=== PATIENT | female | born 1950 | race Caucasian/White ===

== ENCOUNTER 2022-07-14 09:01 | Outpatient (CLI) | payer MEDICARE, OTHER, SELFPAY ==
--- NOTE | ~2022-07-14 | MMUS_ITS ---
EXAMINATION: US breast biopsy LT w image, MM post biopsy invasive LT DATE: 07/14/2022 10:53 (accession [id number]), 07/14/2022 10:55 (accession [id number]) INDICATION: Indeterminate left breast mass Ultrasound-guided core biopsy is requested to evaluate for malignancy. TECHNIQUE AND FINDINGS: The risks and potential benefits of the procedure were discussed with the patient including bleeding, infection, and nondiagnostic specimen. A time out was performed. The skin of the left breast was pre pared and draped in usual sterile fashion. 1% lidocaine was used for superficial anesthesia. 1% lidoc quita with epinephrine was used for deep anesthesia. A vacuum-assisted biopsy gun needle was advanced through to the outer edge of the region of interest from an inferior approach utilizing sonographic guidance. A total of five tissue core samples were ob tained through the lesion. A tissue marker clip was then placed at the biopsy site. Hemostasis was ac hieved. A sterile bandage was applied. The patient tolerated procedure well and there was no evidence of immediate complication. The patient was given verbal instructions to return to the Emergency Department in the event of severe breast pa in or rapid breast enlargement. A two view left breast mammogram was obtained to document tissue daisy er clip placement. IMPRESSION: 1. Successful ultrasound-guided vacuum-assisted biopsy of left breast mass with tissue marker placeme nt. Reviewed, dictated and finalized at location A. IMPRESSION: 1. Successful ultrasound-guided vacuum-assisted biopsy of left breast mass with tissue marker placement.
== END 2022-07-14 09:02 | disposition home or self-care (01) ==
PROVIDERS: PCP Family Medicine; Visit Provider Surgery
DX: C50.912 Malignant neoplasm of unspecified site of left female breast (principal)
CPT/HCPCS: 19083; 88305; 88342; 88360; A4648

== ENCOUNTER 2022-08-11 09:27 | Outpatient (CLI) | payer MEDICARE, OTHER, SELFPAY ==
--- NOTE | 2022-08-11 09:30 | ECG_ITS ---
Measurements Intervals [place] Rate: 66 P: 35 IN: 171 QRS: 24 QRSD: 90 T: 50 QT: 378 QTc: 397 Interpretive Statements SINUS RHYTHM BASELINE ARTIFACT- I, II, III, AVR, AVL, AVF, V4-V6 NORMAL ECG NO PREVIOUS ECG AVAILABLE FOR COMPARISON Electronically Signed On 08-11-2022 10:12:49 CDT by Darrick Nicole D.O.
[2022-08-11 10:20] LABS: Anion Gap 5 mmol/L (8-16); Blood Urea Nitrogen 13 mg/dL (7-17); Calcium 9.6 mg/dL (8.4-10.2); Carbon Dioxide 26 mmol/L (22-30); Chloride 100 mmol/L (98-107); Estimated Glomerular Filt Rate > 60; Glucose 106 mg/dL (65-110); Potassium 4.7 mmol/L (3.4-5.0); Sodium 131 mmol/L (137-145)
== END 2022-08-11 09:28 | disposition home or self-care (01) ==
PROVIDERS: Anesthesiology; PCP Family Medicine; Visit Provider Surgery
DX: Z01.818 Encounter for other preprocedural examination (principal); I10 Essential (primary) hypertension
CPT/HCPCS: 36415; 80048; 93005

== ENCOUNTER 2022-08-13 00:04 | Day surgery (SDC) | payer MEDICARE, OTHER, SELFPAY ==
--- NOTE | 2022-08-07 14:47 | PC.NURSE ---
Addendum entered by Nalini Moses RN 08/07/22 14:51: HIBICLEPERI SHOWER MORNING OF SURGERY Original Note: Report to the Outpatient Waiting Room, entrance under the green pavilion located off [address], at time __0630 on date __08/13/22 . OR Time: ___1000 . NEEDLE LOC AT 0730 Time changes happen often and if your time is changed the preop area will call you the afternoon before. - You and your visitor will be asked to self-screen and do not enter if you have any COVID symptoms. - Only one visitor and NO children visitors are allowed at this time. - The patient visitor is requested to leave or wait in car when not with patient due to restrictions. - A mask is required within the hospital. Patients may have clear liquids (water, carbonated beverages, clear teas, apple juice) until 3 hours prior to surgery with a maximum of 20 ounces. - No food from midnight until time of surgery - Infants may have breast milk until 4 hours before surgery, infant formula 6 hours prior to surgery. - Children will be allowed to drink immediately following surgery. If applicable, please bring a bottle or sippy cup to assist with drinking. Juice, water, soda, and popsicles are readily available. For infants on formula, please bring formula the day of surgery. Pacifiers are allowed. Take the following medications with a SIP of water the morning of surgery: _LEVOTHYROXINE,TIMOLOL EYE DROP,BUSPIRONE IF NEEDED Medications to discontinue per physician ____ALL VITAMINS AND SUPPLEMENTS 3 DAYS PRE OP Date to take last dose____08/09/22 Please no make-up, nail maltese, hairspray, perfume, deodorant, or body powder the day of surgery. No jewelry (including any body piercings) or valuables the day of surgery, leave them at home. Please take a shower or bath the night before, or the morning of, surgery with an antibacterial soap. Wear comfortable, loose fitting clothing. Children are encouraged to wear pajamas. - Jewelry must be removed prior to entering the operating room. Rings and piercings that are not removed may be cut off. - The hospital will not accept responsibility for valuables. - Please leave all valuables, including medications, at home the day of surgery. If you are going home after surgery, a licensed jitney driver must drive you home. - NO public transportation without another adult. - We recommend that an adult stay with you for 24 hours following discharge. - We also recommend that you do not drive, make important decision, drink alcoholic beverages, or take any drugs that were not prescribed by your health care provider for at least 24 hours after your discharge time. For Pediatric surgeries, we recommend two adults accompany the child home (only one inside the building at this time). Follow any additional instructions given to you from your surgeon. If you or anyone in your household have experienced Covid symptoms in the past week, please notify your surgeon or the nurse liaison at the phone number below for possible testing. Telephone instructions given to __PATIENT and asked if any additional questions and then verbalized understanding. Patient advised to call surgeon office or pre surgery nurse liaison [phone] if any additional questions.
[2022-08-07 14:52] VITALS: BMI 27.8
--- NOTE | 2022-08-12 15:30 | WPDANESEPPF ---
Anes - Initial Pre Proc Eval Procedure: Operation Date: 08/13/22 10:00 Proposed Procedures p Left Breast Lumpectomy, Left Axillary [place] Node Biopsy - Sammy Snyder MD s Left Breast Ultrasound and /or Mammogram Guided Needle Localization - Sammy Snyder MD Date/Time: 08/12/22 15:30 Surgeon: Sammy Snyder MD Pre Op Diagnosis: Left Breast Ca Patient Data Age: 72 Gender: F Height: 1.69 m Weight: 79.4 kg Allergies Allergy/AdvReac Type Severity Reaction Status Date / Time Sulfa (Sulfonamide Allergy Severe as a child Verified 08/13/22 08:21 Antibiotics) Home Medications Medication Instructions Recorded Confirmed Type cranberry extract 425 mg capsule 425 mg PO DAILY 06/06/21 08/13/22 History latanoprost 0.005 % eye drops 1 drp EACH EYE DAILY 06/06/21 08/13/22 History olmesartan 20 mg tablet (Benicar) 20 mg PO DAILY 06/06/21 08/13/22 History timolol 0.25 % eye drops 1 drp EACH EYE Q12H 06/06/21 08/13/22 History buspirone 10 mg tablet 5 mg PO BID PRN anxiety #30 tabs 02/26/22 08/13/22 Rx spironolactone 50 mg tablet See Rx Instructions .Route 03/20/22 08/13/22 Rx .COMPLEX #90 tabs clobetasol 0.05 % scalp solution 1 applic topical DAILY 04/09/22 08/13/22 History pravastatin 10 mg tablet See Rx Instructions .Route 06/16/22 08/13/22 Rx .COMPLEX #90 tabs levothyroxine 50 mcg tablet 50 mcg PO DAILY #90 tabs 06/18/22 08/13/22 Rx omeprazole 40 mg capsule,delayed See Rx Instructions .Route 07/10/22 08/13/22 Rx release .COMPLEX #90 caps aspirin 325 mg tablet 325 mg PO DAILY 07/16/22 08/13/22 History Patient hx anesthesia problems: none Family hx anesthesia problems: none Results Review: All pre-operative results and documents have been reviewed as part of the pre-operative evaluation. 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 Scoliosis Surgical History Surgical History Cholecystectomy planned Deficient knowledge of hysterectomy History of eye surgery Status post removal of thyroid nodule Tonsillectomy planned Family History Family History Father Diabetes mellitus Cerebrovascular accident Mother Lung cancer Esophageal cancer Social History Social History Smoking status: Never smoker Second hand tobacco smoke exposure: No Alcohol intake: current Drinks per week: 2 Substance use: never Substance use type: does not use Living arrangements: with family Gender identity (if verbalized by the patient): Female Spiritual care concerns: No Agree to blood products: Yes Anes - Eval Final PreProcedure Day of Procedure 08/12/22 15:30 Patient weight: overweight Heart: regular rate and rhythm Lungs: clear to auscultation and normal air movement Airway: Mallampati scale class II Neurological: alert and oriented Last oral intake: >/= 8 hours ASA classification: III Emergent: no Anesthetic plan: proceed Anesthesia type and monitoring: general LMA Results Review: All pre-operative results and documents have been reviewed as part of the pre-operative evaluation. Informed Consent: The patient's anesthetic plan and its attendant risks and benefits were discussed with the patient/family/POA. Questions were solicited and answers provided to the satisfaction of the patient/family/POA.
[2022-08-13] VITALS (9 sets, daily range): BP systolic 142–168; BP diastolic 66–82; PULSE 60–84; RESP 12–18; TEMP 36.3–37; O2SAT 100
--- NOTE | ~2022-08-13 | NM_ITS ---
NM sentinel node inject only DATE: 08/13/2022 10:35 INDICATION: Left breast cancer; preoperative radiopharmaceutical periareolar injection for detection of axillary sentinel node, sentinel node dissection TECHNIQUE: The purpose of the procedure, technique and potential locations were discussed with the neil nelson. The patient verbalized understanding and gave consent. Timeout procedure confirmed proper patient, procedure and side. Four equally divided doses totaling cumulative 1.031 mCi 99m technetium Lymphoseek were injected subd ermally at 12:00, 3:00, 6:00 and 9:00 periareolar locations. The patient tolerated the procedure well, without complaint or complication. IMPRESSION: Preoperative 99m technetium Lymphoseek periareolar subdermal injections for sentinel nod e detection and surgical dissection Reviewed, dictated and finalized at Location A. Reviewed, dictated and finalized at location A. IMPRESSION: Preoperative 99m technetium Lymphoseek periareolar subdermal injec tions for sentinel node detection and surgical dissection
--- NOTE | ~2022-08-13 | MM_ITS ---
MM surgical specimen LT DATE: 08/13/2022 11:31 INDICATION: Specimen marker excision verification TECHNIQUE: Single noncompression digital mammographic exposure of surgical soft tissue specimen COMPARISON: None FINDINGS: The radiopaque heart shape biopsy marker and wire are present within the surgical soft tiss ue specimen. IMPRESSION: Successful surgical excision of radiopaque biopsy marker Reviewed, dictated and finalized at Location A. Reviewed, dictated and finalized at location A.
--- NOTE | ~2022-08-13 | MM_ITS ---
MM needle loc LT DATE: 08/13/2022 08:36 INDICATION: Breast cancer. Preoperative mammographically guided wire localization of biopsy marker. TECHNIQUE: The purpose of the procedure, technique and potential competitions were discussed with the patient. The patient verbalized understanding and gave consent. Timeout procedure confirmed proper patient, procedure and sidedness. The left breast was placed in compression with biopsy grid apparatus. The skin was prepared with ster ile solution. 1% lidocaine local anesthetic was administered to the skin and underlying subcutaneous tissues. A 5 cm [place] Mammalok needle was introduced into the lateral aspect of the left breast at the area of the biopsy marker. Craniocaudal exposures confirmed appropriate direction of the needle. Mediolateral exposure confirmed proper depth of the needle. The wire was engaged to the needle and th e needle withdrawn. Final ML and CC views reveal the wire in excellent position surrounding the upper outer quadrant left breast biopsy marker. The patient was very cooperative and tolerated the procedure well, without complaint or apparent comp lication. IMPRESSION: Successful preoperative mammographically guided wire localization of upper outer quadrant left breast biopsy marker Reviewed, dictated and finalized at Location A. Reviewed, dictated and finalized at location A. IMPRESSION: Successful preoperative mammographically guided wire localization o f upper outer quadrant left breast biopsy marker
[2022-08-13] MEDS: ACETAMINOPHEN 500 MG TABLET 1000 MG PO (07:29)
[2022-08-13] MEDS: KETOROLAC 15 MG/ML VIAL (*BKC) IV PUSH (07:30)
[2022-08-13] MEDS: LACTATED RINGERS 1,000 ML 30 ML IV CONT ×2 (07:31→12:10)
[2022-08-13 08:16] LABS: Sodium 135 mmol/L (137-145)
--- NOTE | 2022-08-13 08:27 | SUR.PREOP ---
0655: PT TO MAMM VIA W/C ACCOMP BY DOCUMENTING RN FOR NEEDLE LOCALIZATION WITH SNMI TF.
--- NOTE | 2022-08-13 09:43 | WPDHPUPDATE1 ---
History and Physical Update Update Date/Time: 08/13/22 09:43 History and Physical has been reviewed, including an updated exam of the patient. There are NO changes in the patient's condition. Risks, benefits, and alternatives have been discussed and questions answered. Patient agrees to proceed with procedure.
[2022-08-13] MEDS: ceFAZolin 2 GM/D5W 50 ML 2 GM/50 ML BAG IVPB (09:51)
--- NOTE | 2022-08-13 11:00 | SUR.OPER ---
Left Axillary [place] Lymph Node #1 sent with ODALIS Castro to Pathology. Received by Annia in Path at 1101.
--- NOTE | 2022-08-13 11:45 | SUR.OPER ---
Left Breast Lumpectomy received in [facility] by Ghislaine @ 1124. Margins are good. Dr. Snyder informed. Re-excisions sent with ODALIS Chase to Path. Received by Annia at 1145.
[2022-08-13] MEDS: ISOSULFAN BLUE 1% INJ 5 ML VIAL SUB-Q (11:54)
[2022-08-13] MEDS: BUPIVACAINE/EPINEPHRINE 0.25% 50 ML VIAL INFILTRATE (11:55)
--- NOTE | 2022-08-13 12:29 | W.PM.PROC2 ---
Procedure Note - Detailed Date of Procedure 08/13/22 Pre-op Diagnosis Left Breast Ca Post-op Diagnosis Same Procedure Performed Wire localization, left breast lumpectomy, left axillary sentinel lymph node biopsy Surgeon Sammy Snyder MD Isolation Washer Lynn Cheek [facility] Anesthesia General and Local (0.25% Marcaine with epinephrine) Indications Patient was noted on breast imaging to have a 1.3 cm spiculated abnormality in the upper-outer quadrant of the left breast. She underwent ultrasound-guided core biopsy of the lesion. This was found to be invasive ductal carcinoma with some lobular features. She is taken to surgery now for wire localization, left breast lumpectomy as well as left axillary sentinel lymph node biopsy. Findings Despite searching diligently in the left axilla, only 1 left axillary sentinel lymph node could be found. This node had high isotope uptake and also stained with Isosulfan Blue dye. Specimen mammogram did show the lesion to be present in the specimen. Description of Procedure The patient had gone to x-ray for wire localization as well as injection of radioisotope under the left nipple. She then returned to outpatient surgery. She was seen preoperatively and the x-rays examined. She was then taken to the operating room and induced into general anesthesia. The left breast and left axilla were prepped and draped. The left arm was prepped such that it was mobile and prepped into the field. We began by injecting Isosulfan Blue dye under the left nipple. Gentle breast massage was carried out. I then used the Navigator and identified an area in the left axilla that had very high isotope emission. I marked this area. I then clarissa a hairline incision in the axilla. Local anesthesia was infiltrated in the area of the anticipated incision. I then made the incision and dissected through the subcutaneous. Upon encountering the axillary fat, I again used the Navigator and found the direction of the isotope emitting node. Additional dissection was carried out and a blue-stained node was easily found. There were several lymphatics heading to the lymph node. I carefully dissected around the node. The lymphatics were clipped. The node had very high isotope emission. I dissected the lymph node out completely and sent this as sentinel lymph node 1. I then placed the Navigator back in the axilla. We checked for a considerable length of time to find any other areas of high isotope emission. We did some additional dissection under the pectoralis major muscle. Also some additional dissection was done back towards the chest wall. No dye stained or isotope emitting nodes were found. I palpated the axilla and could not find any palpably suspicious nodes. After continuing this process I was eventually convinced there was no additional sentinel nodes of value. We then inspected and achieved good hemostasis. The axilla was closed in layers with interrupted 3-0 Monocryl suture. The skin was closed with interrupted subcuticular 3-0 Monocryl suture. I then placed a laparotomy sponge and a blue towel over the axillary incision. We turned our attention to the left breast. The localizing wire had been carefully protected throughout the procedure. Looking at the mammographies, I marked on the left breast the area where the incision would be made. Local anesthetic was infiltrated in this area. Incision was made and deepened through the superficial breast tissue. I then dissected over to the wire and pulled it through the skin and then out the wound. It now was almost directly over the lesion. We dissected a bit deeper in the breast and then proceeded with the lumpectomy. I grasped the breast tissue at this position with the wire and dissected widely around the area of the anticipated lesion and deeper into the breast such that the hook of the wire would definitely be excised with the lumpectomy specimen. This was able to be accomplished with
[2022-08-13] MEDS: ONDANSETRON INJ 4 MG/2 ML VIAL IV PUSH (12:51)
[2022-08-13] MEDS: oxyCODONE HCL (*CRX) 5 MG TAB IR PO (13:14)
== END 2022-08-13 14:07 | disposition home or self-care (01) ==
PROVIDERS: Anesthesiology; PCP Family Medicine; Visit Provider Surgery
PROC: (CPT 19301; principal; 2022-08-13 10:00)
PROC: (CPT 19301; 2022-08-13 10:00)
DX: C50.412 Malignant neoplasm of upper-outer quadrant of left female breast (principal); J44.9 Chronic obstructive pulmonary disease, unspecified; I10 Essential (primary) hypertension; E03.9 Hypothyroidism, unspecified; K21.9 Gastro-esophageal reflux disease without esophagitis; H40.9 Unspecified glaucoma; F41.9 Anxiety disorder, unspecified; Z87.81 Personal history of (healed) traumatic fracture
CPT/HCPCS: 19301; 38525; 19281; 36415; 38792; 76098; 84295; 88307; A9270; A9520; C1713; C1769; J0690; J1100; J1885; J2405; J2704; J3010; J7030; J7120

== ENCOUNTER 2023-01-05 10:54 | Outpatient (CLI) | payer MEDICARE, OTHER, SELFPAY ==
[2023-01-05 11:11] LABS: Basophils Percent Auto 0.6 % (0.2-1.2); Eosinophils Absolute Auto 0.1 K/mm3 (0-0.3); Eosinophils Percent Auto 2.5 % (0-4.4); Hematocrit 34.4 % (37.0-47.0); Hemoglobin 11.5 g/dL (12.0-15.0); Immature Granulocyte Absolute 0.03 K/mm3 (0.00-0.031); Immature Granulocyte Percent A 0.6 % (0-0.5); Lymphocytes Absolute Auto 1.06 K/mm3 (0.9-3.2); Lymphocytes Percent Auto 21.7 % (18.3-44.2); Mean Corpuscular HGB Conc 33.4 g/dl (32-36); Mean Corpuscular Hemoglobin 31.3 pg (26-34); Mean Corpuscular Volume 93.7 fl (80-100); Mean Platelet Volume 9.1 fl (7.4-10.4); Monocytes Absolute Auto 0.6 K/mm3 (0.1-0.6); Monocytes Percent Auto 12.1 % (2.6-8.5); Neutrophils Absolute Auto 3.1 K/mm3 (1.3-6.7); Neutrophils Percent Auto 62.5 % (45.5-73.1); Platelet Count Result 263 k/mm3 (150-375); Red Blood Count 3.67 M/mm3 (4.2-5.4); Red Cell Distribution Width 11.9 % (11.5-14.5); White Blood Count 4.9 K/mm3 (4.5-10.0)
[2023-01-05 11:32] LABS: Alanine Aminotransferase 27 U/L (6-35); Albumin Level 4.5 g/dL (3.5-5.1); Alkaline Phosphatase 84 U/L (38-126); Anion Gap 5 mmol/L (8-16); Aspartate Amino Transferase 36 U/L (14-36); Bilirubin,Total 0.4 mg/dL (0.2-1.3); Blood Urea Nitrogen 18 mg/dL (7-17); Calcium 9.6 mg/dL (8.4-10.2); Carbon Dioxide 29 mmol/L (22-30); Chloride 97 mmol/L (98-107); Estimated Glomerular Filt Rate > 60; Glucose 98 mg/dL (65-110); Potassium 4.8 mmol/L (3.4-5.0); Sodium 131 mmol/L (137-145)
== END 2023-01-05 10:55 | disposition home or self-care (01) ==
LOC: ANHLAB 10:55
PROVIDERS: PCP Family Medicine; Visit Provider Internal Medicine Hematology & Oncology
DX: C50.412 Malignant neoplasm of upper-outer quadrant of left female breast (principal); Z17.0 Estrogen receptor positive status [ER+]
CPT/HCPCS: 36415; 80053; 85025

== ENCOUNTER 2023-04-14 10:30 | Outpatient (RCR) | payer MEDICARE, OTHER, SELFPAY ==
--- NOTE | 2023-04-07 16:34 | OPREHPOC ---
Outpatient Therapy Plan of Care This is a Multidisciplinary Plan of Care that may contain components documented by all disciplines (PT, OT, and ST.) PT Problem 1 PT Problem #1 Knowledge Deficit PT Goal 1 Goal Pt will demo independence in HEP Target Visit 8 PT Problem 2 PT Problem #2 Pain PT Goal 1 Goal Pt will report highest pain level at 3/10 or less Target Visit 8 PT Goal 2 Goal Pt will report resolution of pain Target Visit 16 PT Problem 3 PT Problem #3 Impaired Range of Motion PT Goal 1 Goal Pt will demo ROM equal to unaffected wrist Target Visit 16 PT Problem 4 PT Problem #4 Impaired Strength PT Goal 1 Goal Pt will demo level vial inside grinder strength within 5 lbs of unaffected UE Target Visit 16
--- NOTE | 2023-04-07 16:38 | PTOPEVAL1 ---
Assessment and note entered by Joellen Wheatley, PT Evaluation Information Assessment Status Evaluation Diagnosis left wrist pain Onset 3 months Subjective Information [place] a [place] driving [place] especially in the last couple of years. Recent radiation therapy for breast. Hsa been wearing splint at night mostly Reported Pain Level Pain Score 0: Self Report Assessment PT Clinical Summary Pt reports pain in left wrist approx last 3 months without injury. Has history of repetitive use injury and fractures so has not been using her wrist much and bracing it secondary to possibility of this. Reports show no fractures and pt only wearing her splint at night now. She demo's decreased ROM of the left wrist as compared to right as well as both decreased compared to normative data. Pt will benefit from physical therapy to address deficits, and improve pain to return to pain-free PLOF. Plan of Care Interventions Electrical Stimulation,Hot Pack/Cold Pack,Manual Therapy,Neuro Re-education,Paraffin Bath,Patient/ Caregiver Educati,Therapeutic Activities, Therapeutic Exercise,Ultrasound Other Interventions Taping PT Services Indicated Yes Treatment Frequency and 2x weekly x 8 weeks Duration These treatments will address the objective and functional deficits as defined above. The patient will be advanced safely and appropriately in order for the patient to progress towards his/her prior level of function. Additional exercises will be introduced and as well as a comprehensive home exercise program upon discharge, if needed, ?to ensure carryover of functional gains achieved in the clinic. This treatment plan has been reviewed and agreement upon by the patient.
--- NOTE | 2023-04-17 10:27 | PTOPDC ---
Assessment and note entered by Joellen Wheatley, PT Assessment Status Discharge - Pt Not Present Diagnosis left wrist pain Onset 3 months Subjective Information [place] a lot driving [place] country especially in the last couple of years. Recent radiation therapy for breast. Hsa been wearing splint at night mostly Assessment PT Clinical Summary During therapy sessions, impairent appeared more intricate than at first evaluation. Pt thus referred to Certified Hand Therapist for best possible care of issue. Thus discharged from PT POC.
== END 2023-04-17 10:48 | disposition home or self-care (01) ==
LOC: ANHHIPT 10:30
PROVIDERS: PCP Family Medicine; Visit Provider Family Medicine
DX: M25.532 Pain in left wrist (principal)
CPT/HCPCS: 97014; 97110; 97140; 97162; G0283

== ENCOUNTER 2023-05-28 09:45 | Outpatient (RCR) | payer MEDICARE, OTHER, SELFPAY ==
--- NOTE | 2023-04-17 14:12 | OTOPEVAL1 ---
Assessment and note entered by CHARITY Odonnell/Michelle, CHT Evaluation Information Assessment Status Evaluation Diagnosis Pain in left wrist Onset ~3 months ago Subjective Information Patient reports onset of pain about 3 months ago. Stating no injury, just onset of wrist pain. She wore an immobilizer x2 months but was advised to stop wearing it so her wrist didn't keep getting weaker. No pain at rest. Pain increases to 5/10 with hooking bra, pinching and pulling up pants, toweling off after her shower, and washing her hair. She states that for over a month she has tried to adjust how she has been holding her phone and tablet to rest the wrist, but reports no changes in her pain. Tylenol helps temporarily, but she doesn't like to take this twice a day. She has a tens unit she uses on the area also. Assessment OT Clinical Summary Patient referred to outpatient hand therapy with left wrist pain with no underlying cause. She has tried immobilizing and she is using a tens unit at home. She continues to have this pain with particular ADL tasks and then the pain subsides with rest. Skilled OT indicated for use of modalities, therapeutic exercise, manual therapy, and HEP instruction to facilitate optimal functional use of the left hand/wrist. Plan of Care Interventions Therapeutic Exercise,Manual Therapy,Therapeutic Activities,Hot Pack/Cold Pack,Paraffin OT Services Indicated Yes Treatment Frequency and 1x/week for 3 weeks Duration These treatments will address the objective and functional deficits as defined above. The patient will be advanced safely and appropriately in order for the patient to progress towards his/her prior level of function. Additional exercises will be introduced and as well as a comprehensive home exercise program upon discharge, if needed, ?to ensure carryover of functional gains achieved in the clinic. This treatment plan has been reviewed and agreement upon by the patient.
--- NOTE | 2023-04-17 14:12 | OPREHPOC ---
Outpatient Therapy Plan of Care This is a Multidisciplinary Plan of Care that may contain components documented by all disciplines (PT, OT, and ST.) OT Problem 1 OT Problem #1 Knowledge Deficit OT Goal 1 Goal 1. Patient to be independent with instructed materials. Target Visit 3 OT Problem 2 OT Problem #2 Pain OT Goal 1 Goal 1. Patient to report reduced pain to 3/10 or less with hooking bra, drying off after her shower, and washing her hair. OT Problem 3 OT Problem #3 Impaired Strength OT Goal 1 Goal 1. Increase left white shoe ragger strength to 45 lbs. 2. Increase palmar pinch strength to 4 lbs. Target Visit 3
--- NOTE | 2023-04-23 15:03 | PCOTNOTE ---
Patient did not show up for scheduled appointment this date. Called patient and left voicemail regarding next appt time.
--- NOTE | 2023-04-30 10:49 | BUOTOPEVAL ---
Assessment and note entered by CHARITY Odonnell/Michelle, CHT Evaluation Information Assessment Status Progress Diagnosis Pain in left wrist Onset ~3 months ago Subjective Information Patient has participated in 2 outpatient hand therapy sessions focused on treating left wrist pain. We began treating De Quervain's tenosynovitis. She has been wearing a thumb spica brace (her previous wrist brace did not immobilize the thumb). She has been completing gentle wrist stretches and using heat/ice. She reports she has no pain at rest. And has been having less pain with hand use now that she is wearing the proper brace. She reports feeling good progress so far. Reported Pain Level Pain Score 0: Self Report Additional Pain Score Comments No pain at rest. Slight increase in pain with passive stretching to the 1st dorsal compartment. Functionally she continues to have pain when trying to open jars and pinch and pull up clothes. No longer having 8/10 pain upon waking up in the morning. Assessment OT Clinical Summary Patient referred to outpatient hand therapy with left wrist pain with no underlying cause. Therapy has deduced that tendonitis vs OA is the root cause of her pain. We have gone back to immobilization, except we have immobilized the thumb and not just the wrist and we are now making good progress with reduced pain. She is currently independent with immobilization, passive stretches, and modalities for pain and inflammation. Plan to have her complete this home program independently x3 and have her return for progression of her HEP. Continued skilled OT indicated for use of modalities, therapeutic exercise, manual therapy, and HEP instruction to facilitate optimal functional use of the left hand /wrist. Plan of Care Interventions Therapeutic Exercise,Manual Therapy,Therapeutic Activities,Hot Pack/Cold Pack,Paraffin OT Services Indicated Yes Treatment Frequency and 0-1x/week for 3 weeks Duration These treatments will address the objective and functional deficits as defined above. The patient will be advanced safely and appropriately in order for the patient to progress towards his/her prior level of function. Additional exercises will be introduced and as well as a comprehensive home exercise program upon discharge, if needed, ?to ensure carryover of functional gains achieved in the clinic. This treatment plan has been reviewed and agreement upon by the patient.
--- NOTE | 2023-04-30 10:50 | OPREHPOC ---
Outpatient Therapy Plan of Care This is a Multidisciplinary Plan of Care that may contain components documented by all disciplines (PT, OT, and ST.) OT Problem 1 OT Problem #1 Knowledge Deficit OT Goal 1 Goal 1. Patient to be independent with instructed materials. ---OT POC UPDATE 04/29/23--- 1. Met, continue as HEP is progressed Target Visit 3 OT Problem 2 OT Problem #2 Pain OT Goal 1 Goal 1. Patient to report reduced pain to 3/10 or less with hooking bra, drying off after her shower, and washing her hair. ---OT POC UPDATE 04/29/23--- 1. Patient is progressing and doing well with reduced pain during ADLs, continue to monitor and address pain each session. OT Problem 3 OT Problem #3 Impaired Strength OT Goal 1 Goal 1. Increase left pulper tender strength to 45 lbs. 2. Increase palmar pinch strength to 4 lbs. ---OT POC UPDATE 04/29/23--- Strength has not been addressed yet as our main focus has been pain reduction. Will be addressing pain at our next session in 3 weeks. Target Visit 3
--- NOTE | 2023-05-28 10:09 | OTOPDC ---
Assessment and note entered by CHARITY Odonnell/Michelle, CHT Evaluation Information Assessment Status Discharge Diagnosis Pain in left wrist Subjective Information Patient has participated in 4 outpatient hand therapy sessions focused on treating left wrist pain. We began treating De Quervain's tenosynovitis. She had been wearing a thumb spica brace for about 2 weeks, but stopped due to feeling like it was no longer helping. She has been completing gentle wrist stretches and using heat/ice. She continues to report no pain at rest. Worst pain is when she wakes up in the morning, rating this at 6/10. She states as she gets moving the pain eases up. She states she would like to wrap up her care here and get a referral to an orthopedic MD. Reported Pain Level Pain Score 0: Self Report Additional Pain Score Comments No pain at rest. 6/10 upon waking up in the morning. Assessment OT Clinical Summary Patient referred to outpatient hand therapy with left wrist pain with no underlying cause. Therapy has deduced that tendonitis vs OA is the root cause of her pain, however she continues to have negative Arianna's and CMC grind test. She has pain with odd movements and points to the 1st dorsal compartment/1st CMC area as the site of her pain. She presents today stating that her progress has plateaued with therapy and she is interested in following up with Dr. Andersen for further treatment. Discharging the patient today with goals not met. Plan of Care OT Services Indicated No
== END 2023-05-29 11:13 | disposition home or self-care (01) ==
LOC: ANHOT 09:45
PROVIDERS: PCP Family Medicine; Visit Provider Family Medicine
DX: M25.532 Pain in left wrist (principal)
CPT/HCPCS: 97018; 97110; 97140; 97166; 99199

== ENCOUNTER 2023-06-09 11:47 | Outpatient (CLI) | payer MEDICARE, OTHER, SELFPAY ==
--- NOTE | ~2023-06-09 | MM_ITS ---
EXAMINATION: MM diagnostic [facility] BI w jeevan HISTORY: History of left breast cancer status post lumpectomy TECHNIQUE: Craniocaudal, mediolateral, and mediolateral oblique 3-D tomosynthesis images of the breas ts were performed and synthetic 2-D images were generated. CAD analysis was submitted and interpreted . COMPARISON: 06/13/2022, 04/18/2022 BREAST PARENCHYMAL COMPOSITION: There are scattered areas of fibroglandular density. FINDINGS: There are changes of interval lumpectomy in the upper outer quadrant of the left breast. Le ft breast skin thickening is consistent with radiation change. No suspicious mass is identified. The right breast is stable without suspicious mass, calcification, or architectural distortion. IMPRESSION: 1. Changes of interval lumpectomy in the upper outer quadrant of the left breast without mammographic evidence of malignancy. 2. Recommend routine screening mammography in one year. BI-RADS Category 2: Benign finding(s). Reviewed, dictated and finalized at location D. IMPRESSION: 1. Changes of interval lumpectomy in the upper outer quadrant of the left breas t without mammographic evidence of malignancy. 2. Recommend routine screening mammography in one year. BI-RADS Category 2: Benign finding(s).
== END 2023-06-09 11:48 | disposition home or self-care (01) ==
PROVIDERS: PCP Family Medicine; Visit Provider Internal Medicine Hematology & Oncology
DX: C50.412 Malignant neoplasm of upper-outer quadrant of left female breast (principal); Z17.0 Estrogen receptor positive status [ER+]; Z98.890 Other specified postprocedural states
CPT/HCPCS: 77062; 77066; G0279

== ENCOUNTER 2023-06-29 09:25 | Outpatient (CLI) | payer MEDICARE, OTHER, SELFPAY ==
[2023-06-29 10:10] LABS: Eosinophils Absolute Auto 0.1 K/mm3 (0-0.3); Eosinophils Percent Auto 2.2 % (0-4.4); Hemoglobin 11.8 g/dL (12.0-15.0); Immature Granulocyte Absolute 0.02 K/mm3 (0.00-0.031); Immature Granulocyte Percent A 0.5 % (0-0.5); Lymphocytes Absolute Auto 1.06 K/mm3 (0.9-3.2); Lymphocytes Percent Auto 25.6 % (18.3-44.2); Mean Corpuscular HGB Conc 33.7 g/dl (32-36); Mean Corpuscular Volume 91.9 fl (80-100); Mean Platelet Volume 9.7 fl (7.4-10.4); Monocytes Absolute Auto 0.5 K/mm3 (0.1-0.6); Monocytes Percent Auto 12.1 % (2.6-8.5); Neutrophils Absolute Auto 2.4 K/mm3 (1.3-6.7); Neutrophils Percent Auto 58.6 % (45.5-73.1); Platelet Count Result 218 k/mm3 (150-375); Red Blood Count 3.81 M/mm3 (4.2-5.4); Red Cell Distribution Width 11.4 % (11.5-14.5); White Blood Count 4.1 K/mm3 (4.5-10.0)
[2023-06-29 10:37] LABS: Anion Gap 6 mmol/L (8-16); Blood Urea Nitrogen 14 mg/dL (7-17); Calcium 9.3 mg/dL (8.4-10.2); Carbon Dioxide 28 mmol/L (22-30); Chloride 99 mmol/L (98-107); Estimated Glomerular Filt Rate > 60; Glucose 106 mg/dL (65-110); Potassium 4.5 mmol/L (3.4-5.0); Sodium 133 mmol/L (137-145)
[2023-06-29 11:43] LABS: Folic Acid > 20.0 ng/mL (2.76->20)
[2023-06-29 12:21] LABS: Iron 102 ug/dL (37-170)
[2023-06-29 12:31] LABS: Percent Iron Saturation 27 % (20-50)
[2023-07-03 06:07] LABS: CA 15-3 11 U/mL (<32)
== END 2023-06-29 09:26 | disposition home or self-care (01) ==
LOC: ANHLAB 09:28
PROVIDERS: PCP Family Medicine; Visit Provider Internal Medicine Hematology & Oncology
DX: C50.412 Malignant neoplasm of upper-outer quadrant of left female breast (principal); D64.9 Anemia, unspecified; Z17.0 Estrogen receptor positive status [ER+]
CPT/HCPCS: 36415; 80048; 82607; 82728; 82746; 83540; 83550; 85025; 86300

== ENCOUNTER 2023-07-14 09:45 | Outpatient (RCR) | payer MEDICARE, OTHER, SELFPAY ==
--- NOTE | 2023-06-24 08:43 | OTOPEVAL1 ---
Assessment and note entered by Helio Mesa, CHARITY/Michelle, CHT Evaluation Information Assessment Status Evaluation Diagnosis Pain in left wrist Onset ~3-4 months ago Subjective Information Patient has been experiencing pain in her left wrist for a few months. Difficulties with any sort of pinching with lifting or supinating and lifting. Her pain is the worst in the morning, reporting 7/10 pain, then this decreases throughout the day. She had a steroid injection yesterday and reports some relief. She also has a wrist/thumb immobilizer that she is wearing. Reported Pain Level Pain Score 0: Self Report Additional Pain Score Comments Pain increases to 7/10 in the morning. Assessment OT Clinical Summary Patient referred to outpatient hand therapy with pain in her left wrist. Signs and symptoms are consistent with de Quervain's She is familiar to this clinic as she was being treated for this a month ago. Her pain became too severe, so she went back to the doctor for a steroid injection. 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 Skilled OT indicated to facilitate reduced pain and improved functional strength of the left wrist. Plan of Care Interventions Therapeutic Exercise,Manual Therapy,Therapeutic Activities,Hot Pack/Cold Pack,Self-Care/Home Management,Ultrasound,Paraffin OT Services Indicated Yes Treatment Frequency and 1-2x/week for 3 weeks Duration These treatments will address the objective and functional deficits as defined above. The patient will be advanced safely and appropriately in order for the patient to progress towards his/her prior level of function. Additional exercises will be introduced and as well as a comprehensive home exercise program upon discharge, if needed, ?to ensure carryover of functional gains achieved in the clinic. This treatment plan has been reviewed and agreement upon by the patient.
--- NOTE | 2023-06-24 08:44 | OPREHPOC ---
Outpatient Therapy Plan of Care This is a Multidisciplinary Plan of Care that may contain components documented by all disciplines (PT, OT, and ST.) OT Problem 1 OT Problem #1 Knowledge Deficit OT Goal 1 Goal 1. Patient to be independent with instructed materials. 2. Patient to adhere to orthotic wearing schedule. Target Visit 6 OT Problem 2 OT Problem #2 Pain OT Goal 1 Goal 1. Patient to report reduced pain in the left wrist, reporting pain 4/10 or less at worst . OT Problem 3 OT Problem #3 Impaired Flexibility OT Goal 1 Goal 1. Patient to be able to complete active ROM of the left wrist in all planes without pain. Target Visit 6
--- NOTE | 2023-07-14 10:08 | OTOPDC ---
Assessment and note entered by Helio Mesa, JONATHANR/Michelle, CHT Discharge Summary 07/14/23 Diagnosis Pain in left wrist Onset ~3-4 months ago Subjective Information Patient reports doing excellent - reporting no functional limitations. She has been finally waking up without pain. She is completing gentle strengthening without issues. States pain at worst in the last week was 2/10. Arianna's is negative today. Assessment OT Clinical Summary Patient presents today for OT re-evaluation following 3 weeks of therapy for de Quervain's tenosynovitis. She has made excellent progress with therapy. She is tolerating light resistive exercise without difficulty. Plan - Patient to continue her current HEP of ROM and strengthening as well as night splinting for another month. She is currently independent with all materials. No further skilled OT indicated at this time. D/C with therapy goals met. Plan of Care OT Services Indicated No
== END 2023-07-14 11:29 | disposition home or self-care (01) ==
LOC: ANHOT 09:45
PROVIDERS: PCP Family Medicine; Visit Provider Nurse Practitioner
DX: M25.532 Pain in left wrist (principal)
CPT/HCPCS: 97018; 97110; 97140

== ENCOUNTER 2023-11-23 12:22 | Outpatient (CLI) | payer MEDICARE, OTHER, SELFPAY ==
[2023-11-23 12:34] LABS: Basophils Percent Auto 0.9 % (0.2-1.2); Eosinophils Absolute Auto 0.1 K/mm3 (0-0.3); Eosinophils Percent Auto 1.1 % (0-4.4); Hematocrit 32.8 % (37.0-47.0); Hemoglobin 11.1 g/dL (12.0-15.0); Immature Granulocyte Absolute 0.03 K/mm3 (0.00-0.031); Immature Granulocyte Percent A 0.6 % (0-0.5); Lymphocytes Absolute Auto 0.98 K/mm3 (0.9-3.2); Lymphocytes Percent Auto 21.2 % (18.3-44.2); Mean Corpuscular HGB Conc 33.8 g/dl (32-36); Mean Corpuscular Hemoglobin 31.4 pg (26-34); Mean Corpuscular Volume 92.9 fl (80-100); Mean Platelet Volume 9.3 fl (7.4-10.4); Monocytes Absolute Auto 0.4 K/mm3 (0.1-0.6); Monocytes Percent Auto 9.3 % (2.6-8.5); Neutrophils Absolute Auto 3.1 K/mm3 (1.3-6.7); Neutrophils Percent Auto 66.9 % (45.5-73.1); Platelet Count Result 213 k/mm3 (150-375); Red Blood Count 3.53 M/mm3 (4.2-5.4); White Blood Count 4.6 K/mm3 (4.5-10.0)
[2023-11-23 19:48] LABS: Alanine Aminotransferase 22 U/L (6-35); Albumin Level 4.2 g/dL (3.5-5.1); Alkaline Phosphatase 53 U/L (38-126); Anion Gap 7 mmol/L (8-16); Aspartate Amino Transferase 29 U/L (14-36); Bilirubin,Total 0.4 mg/dL (0.2-1.3); Blood Urea Nitrogen 12 mg/dL (7-17); Calcium 9.5 mg/dL (8.4-10.2); Carbon Dioxide 28 mmol/L (22-30); Chloride 98 mmol/L (98-107); Estimated Glomerular Filt Rate > 60; Glucose 94 mg/dL (65-110); Potassium 4.4 mmol/L (3.4-5.0); Sodium 133 mmol/L (137-145)
[2023-11-25 21:39] LABS: CA 15-3 11 U/mL (<32)
== END 2023-11-23 12:23 | disposition home or self-care (01) ==
PROVIDERS: PCP Family Medicine; Visit Provider Internal Medicine Hematology & Oncology
DX: C50.412 Malignant neoplasm of upper-outer quadrant of left female breast (principal); Z17.0 Estrogen receptor positive status [ER+]
CPT/HCPCS: 36415; 80053; 85025; 86300

== ENCOUNTER 2024-03-28 10:55 | Outpatient (CLI) | payer MEDICARE, OTHER, SELFPAY ==
[2024-03-28 11:18] LABS: Basophils Percent Auto 0.6 % (0.2-1.2); Eosinophils Absolute Auto 0.1 K/mm3 (0-0.3); Eosinophils Percent Auto 1.6 % (0-4.4); Hematocrit 35.1 % (37.0-47.0); Hemoglobin 11.6 g/dL (12.0-15.0); Immature Granulocyte Absolute 0.01 K/mm3 (0.00-0.031); Immature Granulocyte Percent A 0.2 % (0-0.5); Lymphocytes Absolute Auto 1.35 K/mm3 (0.9-3.2); Lymphocytes Percent Auto 27.1 % (18.3-44.2); Mean Corpuscular Hemoglobin 31.2 pg (26-34); Mean Corpuscular Volume 94.4 fl (80-100); Mean Platelet Volume 9.5 fl (7.4-10.4); Monocytes Absolute Auto 0.6 K/mm3 (0.1-0.6); Monocytes Percent Auto 11.4 % (2.6-8.5); Neutrophils Percent Auto 59.1 % (45.5-73.1); Platelet Count Result 222 k/mm3 (150-375); Red Blood Count 3.72 M/mm3 (4.2-5.4); Red Cell Distribution Width 11.9 % (11.5-14.5)
[2024-03-28 13:16] LABS: Alanine Aminotransferase 18 U/L (6-35); Albumin Level 4.5 g/dL (3.5-5.1); Alkaline Phosphatase 70 U/L (38-126); Anion Gap 5 mmol/L (4-12); Aspartate Amino Transferase 26 U/L (14-36); Bilirubin,Total 0.4 mg/dL (0.2-1.3); Blood Urea Nitrogen 16 mg/dL (7-17); Calcium 9.9 mg/dL (8.4-10.2); Carbon Dioxide 26 mmol/L (22-30); Chloride 98 mmol/L (98-107); Estimated Glomerular Filt Rate > 60; Glucose 100 mg/dL (65-110); Potassium 4.7 mmol/L (3.4-5.0); Sodium 129 mmol/L (137-145)
== END 2024-03-28 10:56 | disposition home or self-care (01) ==
LOC: ANHLAB 10:57
PROVIDERS: PCP Family Medicine; Visit Provider Internal Medicine Hematology & Oncology
DX: C50.412 Malignant neoplasm of upper-outer quadrant of left female breast (principal); Z17.0 Estrogen receptor positive status [ER+]
CPT/HCPCS: 36415; 80053; 85025

== ENCOUNTER 2024-06-13 09:19 | Outpatient (CLI) | payer MEDICARE, OTHER, SELFPAY ==
--- NOTE | ~2024-06-13 | MM_ITS ---
EXAMINATION: MM screening [facility] BI w jeevan HISTORY: Screening TECHNIQUE: Craniocaudal and mediolateral oblique 3-D tomosynthesis images were obtained and synthetic 2-D images were generated. CAD analysis was submitted and interpreted. COMPARISON: Comparison to multiple prior studies sequentially, with oldest reviewed study dated 01/2022. BREAST PARENCHYMAL COMPOSITION: Not dense: There are scattered areas of fibroglandular density. FINDINGS: There is developing bilateral fat necrosis in the upper outer quadrants. There is no eviden ce of suspicious mass, calcification, or architectural distortion to suggest malignancy in either rajesh ast. There has been no suspicious interval change. IMPRESSION: 1. No mammographic evidence of malignancy. 2. Recommend routine screening mammography in one year. BI-RADS Category 2: Benign finding(s). Reviewed, dictated and finalized at location B.
== END 2024-06-13 09:20 | disposition home or self-care (01) ==
LOC: ANHIMG 09:22
PROVIDERS: PCP Family Medicine; Visit Provider Internal Medicine Hematology & Oncology
DX: Z12.31 Encounter for screening mammogram for malignant neoplasm of breast (principal)
CPT/HCPCS: 77063; 77067

== ENCOUNTER 2024-08-01 10:03 | Outpatient (CLI) | payer MEDICARE, OTHER, SELFPAY ==
[2024-08-01 10:19] LABS: Basophils Percent Auto 0.6 % (0.2-1.2); Eosinophils Absolute Auto 0.1 K/mm3 (0-0.3); Eosinophils Percent Auto 1.5 % (0-4.4); Hematocrit 35.2 % (37.0-47.0); Hemoglobin 11.5 g/dL (12.0-15.0); Immature Granulocyte Absolute 0.02 K/mm3 (0.00-0.031); Immature Granulocyte Percent A 0.4 % (0-0.5); Lymphocytes Absolute Auto 1.17 K/mm3 (0.9-3.2); Lymphocytes Percent Auto 24.6 % (18.3-44.2); Mean Corpuscular HGB Conc 32.7 g/dl (32-36); Mean Corpuscular Hemoglobin 31.3 pg (26-34); Mean Corpuscular Volume 95.7 fl (80-100); Mean Platelet Volume 9.2 fl (7.4-10.4); Monocytes Absolute Auto 0.4 K/mm3 (0.1-0.6); Monocytes Percent Auto 9.2 % (2.6-8.5); Neutrophils Percent Auto 63.7 % (45.5-73.1); Platelet Count Result 200 k/mm3 (150-375); Red Blood Count 3.68 M/mm3 (4.2-5.4); Red Cell Distribution Width 11.8 % (11.5-14.5); White Blood Count 4.8 K/mm3 (4.5-10.0)
[2024-08-01 12:39] LABS: Alanine Aminotransferase 18 U/L (6-35); Albumin Level 4.2 g/dL (3.5-5.1); Alkaline Phosphatase 57 U/L (38-126); Anion Gap 10 mmol/L (4-12); Aspartate Amino Transferase 25 U/L (14-36); Bilirubin,Total 0.4 mg/dL (0.2-1.3); Blood Urea Nitrogen 12 mg/dL (7-17); Calcium 9.5 mg/dL (8.4-10.2); Carbon Dioxide 25 mmol/L (22-30); Chloride 97 mmol/L (98-107); Estimated Glomerular Filt Rate > 60; Glucose 136 mg/dL (65-110); Potassium 4.3 mmol/L (3.4-5.0); Sodium 132 mmol/L (137-145)
[2024-08-04 07:08] LABS: CA 15-3 11 U/mL (<32)
== END 2024-08-01 10:04 | disposition home or self-care (01) ==
PROVIDERS: PCP Family Medicine; Visit Provider Internal Medicine Hematology & Oncology
DX: C50.412 Malignant neoplasm of upper-outer quadrant of left female breast (principal); Z17.0 Estrogen receptor positive status [ER+]
CPT/HCPCS: 36415; 80053; 85025; 86300

== ENCOUNTER 2025-01-20 11:24 | Outpatient (CLI) | payer MEDICARE, OTHER, SELFPAY ==
[2025-01-20 11:38] LABS: Basophils Absolute Auto 0.1 K/mm3 (0.0-0.1); Basophils Percent Auto 0.8 % (0.2-1.2); Eosinophils Absolute Auto 0.3 K/mm3 (0-0.3); Eosinophils Percent Auto 4.3 % (0-4.4); Hematocrit 35.3 % (37.0-47.0); Hemoglobin 11.9 g/dL (12.0-15.0); Immature Granulocyte Absolute 0.03 K/mm3 (0.00-0.031); Immature Granulocyte Percent A 0.5 % (0-0.5); Lymphocytes Absolute Auto 1.85 K/mm3 (0.9-3.2); Lymphocytes Percent Auto 30.6 % (18.3-44.2); Mean Corpuscular HGB Conc 33.7 g/dl (32-36); Mean Corpuscular Hemoglobin 31.4 pg (26-34); Mean Corpuscular Volume 93.1 fl (80-100); Mean Platelet Volume 9.1 fl (7.4-10.4); Monocytes Absolute Auto 0.7 K/mm3 (0.1-0.6); Monocytes Percent Auto 11.9 % (2.6-8.5); Neutrophils Absolute Auto 3.1 K/mm3 (1.3-6.7); Neutrophils Percent Auto 51.9 % (45.5-73.1); Platelet Count Result 227 k/mm3 (150-375); Red Blood Count 3.79 M/mm3 (4.2-5.4)
--- OUTSIDE RECORDS SUMMARY | 2025-01-20 12:17 | XMS_ITS | Clinical Summary ---
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 Name Role Phone Leticia Boyer DO Primary Care Provider + Allergies Active Allergy Reactions Criticality Noted Date Comments Bimatoprost Unknown 06/06/2008 Brimonidine-Timolol Itching,Swelling Medium 08/10/2019 Clobetasol Itching Low 12/18/2014 rash Hydrogen Peroxide Swelling Medium 09/27/2010 Thiazides Cough Low 09/27/2010 Medications omeprazole (PriLOSEC) 40 mg capsule Take 1 capsule (40 mg total) by mouth daily Active spironolactone (ALDACTONE) 50 mg tablet Take 1 tablet (50 mg total) by mouth daily Active levothyroxine (SYNTHROID) 50 mcg tablet Take 1 tablet (50 mcg total) by mouth cardiovascular surgeon before breakfast Active pravastatin (PRAVACHOL) 10 mg tablet Take 1 tablet (10 mg total) by mouth daily Active olmesartan (BENICAR) 20 mg tablet Take 1 tablet (20 mg total) by mouth daily Active acetaminophen (TYLENOL ARTHRITIS ORAL) Take by mouth Active d-mannose (AZO D-Mannose) 500 mg capsule Take by mouth Activ e calcium carbonate (OS-SANTOS) 1,500 mg (600 mg elemental) tablet Take 1 tablet (1,500 mg total) by mouth Active multivitamin capsule Take 1 capsule by mouth daily Active busPIRone (BUSPAR) 10 mg tabletIndicatio ns:Generalized Anxiety Disorder Take 1 tablet (10 mg total) by mouth 3 (three) times a day Active cholecalciferol (VITAMIN D-3) 1,000 unit capsule Take by mouth daily Active ferrous sulfate 325 mg (65 mg of elemental iron) tablet Take 1 tablet (325 mg total) by mouth daily Active HYDROcodone-fabiola taminophen (NORCO) 5-325 mg per tablet Take 1 tablet by mouth every 4 (four) hours as needed 4 Active latanoprost (XALATAN) 0.005 % ophthalmic solution 4 Active tamoxifen (NOLVADEX) 20 mg tablet Take 1 tablet (20 mg total) by mouth daily 4 Active timolol (TIMOPTIC) 0.5 % ophthalmic solution 4 Active Active Problems Problem Noted Date Diagnosed Date Age-related osteoporosis wit hout current pathological fracture 01/02/2023 Family History Medical History Relation Name Comments Hip fracture Neg Hx Osteoporosis Neg Hx Social History Tobacco Use Types Packs/Day Years Used Date Smoking Tobacco: Never Smokeless Tobacco: Never Tobacco Cessation:Counseling Given: Not Answered Personal Safety Answer Date Recorded Getting School Help Needed Not on file 11/22 Comments Unknown Sex and Gender Information Value Date Recorded Sex Assigned at Not on file Legal Sex Female 8:53 AM CDT Gender Identity Not on file Sexual Orientation Not on file Obstetrics History Last Filed Vital Signs Vital Sign Reading Time Taken Comments Blood Pressure 132/61 05/13/2024 9:20 AM CDT Pulse 60 05/13/2024 9:20 AM CDT Temperature 36.9 C (98.4 F) 05/13/2024 9:20 AM CDT Respiratory Rate 18 05/13/2024 9:20 AM CDT Oxygen Saturation 100% 05/13/2024 9:20 AM CDT Inhaled Oxygen Concentration - - Weight 77.5 kg (170 lb 14.4 oz) 02/05/2024 2:29 PM CDT Height 167.6 cm (5' 6 ) 02/05/2024 2:29 PM CDT Body Mass Index 27.58 02/05/2024 2:29 PM CDT Plan of Treatment Health Maintenance Due Date Last Done Comments Depression Screening 1950 Fall Risk Assessment 1950 Hepatitis C Screening 1950 Hepatitis B Screening 1966 Pneumococcal vaccine 65+ (1 of 2 - PCV) 1967 Well Visit 65+ 2013 Zoster Vaccine (1 of 2) 08/09/2013 06/14/2013 DTaP/Tdap/Td Vaccine (2 - Td or Tdap) 03/20/2015 03/20/2005 Covid-19 Vaccine (2023-2 5 season) 2024 07/28/2022, 02/19/2022, 09/12/2021, Additional history exists Influenza Vaccine (#1) 2024 , 08/13/2021, 10/13/2012, Additional history exists Osteoporosis Screening-Bone Density Scan 02/04/2026 02/05/2024, 02/05/2024, 01/02/2023, Additional history exists Breast Cancer Screening-Mammogram Discontinued 024, 04/18/2022 Procedures Procedure Name Priority Date/Time Associated Diagnosis Comments DEXA TBS AXIAL SKELETON BONE DENSITY 1 OR MORE SITES Schedule Routine, Read Routine (OP Routine) 02/05/2024 2:30 PM CDT Age-related osteoporosis without current pathological fracture from Last 3 Months or Most Recently Relevant to Health Maintenance Results * Dexa TBS Axial Skeleton Bone Density 1 or more sites (02/05/2024 2:30 PM CDT) Anatomical Region Laterality Modality Wrist, Body N/A Radiographic Samira ging Narrative 02/08/2024 10:57 AM CDT Patient Name: Beatris Campo Date of : 1950 Date of scan: 02/05/2024 Bone mineral density was performed on a [employer] Discovery Densitometer. Based on machine cross-calibration and precision studies the least significant changes of this densitometer is 0.024 g/cm2 at the spine, 0.020 g/cm2 at the total proximal femur, and 0.014g/cm2 at the forearm. HISTORY: This is a 73 y.o. postmenopausal female with a history of breast cancer, low bone mass, and vitamin D deficiency. She reports that she has never smoked. She has never used smokeless tobacco. Currently on treatment with calcium, vitamin D, zoledronic acid (Reclast), tamoxifen, and thyroid hormone and previously treated with diuretics. INDICATIONS: Menopause status, treatment monitoring, vitamin D deficiency, and history of low bone mass. FINDINGS: BONE MINERAL DENSITY OF THE LUMBAR SPINE Bone Mineral Density (BMD) of the lumbar spine was measured from L1-L4 and the average density was calculated to be 0.948 gm/cm2. This corresponds to a T-score (standard deviations from the mean of young adults) of -0.9. When compared to the previous study of 01/02/2023 there has been no significant changes in bone density. BONE MINERAL DENSITY OF THE PROXIMAL FEMUR Bone Mineral Density (BMD) of the left hip total was found to be 0.736 gm/cm2. This corresponds to a T-score standard deviations from the mean of young adults of -1.7. Femoral neck is 0.633 gm/cm2 with a T-score (standard deviations from the mean of young adults) of -1.9. When compared to the previous study of 01/02/2023 there has been no significant changes in bone density. SUMMARY: Bone mineral density shows evidence of low bone mass at the proximal femur and moderately increased fracture risk (Osteopenia). There has been no significant changes in bone density since previous measurement. There is an artifact in the lumbar spine scan that cannot be corrected and may affect estimation of bone density. The lumbar spine Trabecular Bone Score is 1.262 which suggests degraded bone microarchitecture compared to the general population. Final decisions regarding diagnostic or therapeutic recommendations should include BMD, TBS, additional clinical risk factors as well the clinical context of the patient. Please see attached TBS results for further details. ADDITIONAL COMMENTS: Postmenopausal Women and Men Over 50: Diagnostic criteria: Osteoporosis: BMD at or below -2.5 T-score; Osteopenia (low bone mass): BMD between -1.0 and -2.5 T-score. If the patient has a history of a fragility fracture, a fracture that occurred with trauma equivalent to a fall from a standing position or less, then the diagnosis is osteoporosis regardless of bone density. The history and data sections of the bone mineral density scan were prepared by Bri Lea) DIANE who is accredited by the International Society of Clinical Densitometry. The overall patient assessment and scan interpretation were performed by Gabrielle Crocker MD who is certified by the International Society of Clinical Densitometry. [id number] us Gabrielle Crocker MD IMG DXA PROCEDURES Final R esult from Last 3 Months or Most Recently Relevant to Health Maintenance Insurance MEDICARE [employer]ICARE [employer] Care Teams Traffic Warehouse Supervisor Relationship Specialty Start Date End Date Leticia Boyer DO [address] [place] [id number] PCP - General Family Medicine 06/18/22
--- OUTSIDE RECORDS SUMMARY | 2025-01-20 12:17 | XMS_ITS | Clinical Summary ---
Author Organization [facility] Fernando Foycharles Address [address] [place] [address] Care Team Providers Care Service Establishment Attendant Name Role Phone Tian Mary MD Primary Care Provider [phone] Allergies Active Allergy Reactions Criticality Noted Date Comments Bimatoprost Unknown 06/06/2008 Brimonidine-Timolol Itching,Swelling Low 08/10/2019 Clobetasol Itching Low 12/18/2014 rash Hydrogen Peroxide Swelling Low 09/27/2010 Sulfa (Sulfonamide Antibiotics) Rash Low 04/17 Thiazides Cough Low 09/27/2010 Medications pravastatin (PRAVACHOL) 10 mg tablet Take 10 mg by mouth. Active omeprazole (PriLOSEC) 20 mg Capsule, Delayed Release(E.C.) Take 20 mg by mouth daily. Active levothyroxine 50 mcg tablet Take 50 mcg by mouth. Active Cranberry 500 mg Capsule Take 1 Capsule by mouth daily. Active timolol (TIMOPTIC-XE) 0.25 % Gel Forming Solution Administer 1 Drop in both eyes daily. Active olmesartan (BENICAR) 40 mg tablet Take 40 mg by mouth daily. Active acetaminophen (TYLENOL ARTHRITIS) 650 mg Extended Release tablet Take 650 mg by mouth every 6 hours as needed for Pain. Active cholecalciferol , Vitamin D3, (VITAMIN D3) 25 mcg (1,000 unit) Capsule Take by mouth daily. Active calcium as carbonate (CALTRATE) 1,500 mg (600 mg elemental) Tablet Take by mouth. Activ e latanoprost (XALATAN) 0.005 % solution Administer 1 Drop in both eyes daily at bedtime. 2 Active OTHER Prevagan one tablet daily Active tamoxifen (NOLVADEX) 20 mg tabletIndicatio ns:Malignant neoplasm of upper-outer quadrant of left breast in female, estrogen receptor positive (CMS/HCC) TAKE 1 TABLET DAILY 90 Tablet 3 4 Active Active Problems Problem Noted Date Diagnosed Date Personal history of malignant neoplasm of breast 02/02/2024 S/P partial mastectomy, left 02/02/2024 Personal history of radiation therapy 02/02/2024 Postoperative breast asymmetry 02/02/2024 Encounters Date Type Department Care Team Description 01/17/2025 External Device Data [facility] ABSTRACTION Provider, Abstract 01/03/2025 External Device Data [facility] ABSTRACTION Provider, Abstract 12/13/2024 External Device Data [facility] ABSTRACTION Provider, Abstract 12/07/2024 External Device Data [facility] ABSTRACTION Provider, Abstract 12/06/2024 External Device Data [facility] ABSTRACTION Provider, Abstract 11/30/2024 External Device Data [facility] ABSTRACTION Provider, Abstract from Last 3 Months Family History Medical History Relation Name Comments No Known Problems Daughter 1 No Known Problems Daughter 2 Diabetes Father Heart Disease Father Prostate Cancer Father Esophageal Cancer Mother Lung Cancer Mother Osteoporosis Sister No Known Problems Son Relation Name Status Comments Daughter 1 Alive Daughter 2 Alive Father Mother Sister Alive Son Alive Social History Tobacco Use Types Packs/Day Years Used Date Smoking Tobacco: Never Smokeless Tobacco: Never Tobacco Cessation:Counseling Given: Not Answered Alcohol Use Standard Drinks/Week Comments Yes 1 (1 standard drink = 0.6 oz pur e alcohol) 1-2 per month Feeling Safe Answer Date Recorded Are you in a relationship wi th someone who hurts you emotionally and/or physically? No 02/02/2024 Comments No Sex and Gender Information Value Date Recorded Sex Assigned at Not on file Legal Sex Female 1:43 PM CDT Gender Identity Not on file Sexual Orientation Not on file Last Filed Vital Signs Vital Sign Reading Time Taken Comments Blood Pressure 107/66 08/05/2024 10:33 AM CDT Pulse 84 08/05/2024 10:33 AM CDT Temperature 36.7 C (98 F) 08/05/2024 10:33 AM CDT Respiratory Rate 16 08/05/2024 10:33 AM CDT Oxygen Saturation 98% 08/05/2024 10:33 AM CDT Inhaled Oxygen Concentration - - Weight 78 kg (172 lb) 08/05/2024 10:33 AM CDT Height 167.6 cm (5' 6 ) 03/21/2024 9:56 AM CDT Body Mass Index 27.76 03/21/2024 9:56 AM CDT Plan of Treatment Upcoming Encounters Date Type Department Care Team (Late st Contact Info) Description 02/02/2025 11:00 AM CDT Office Visit [facility] Oncology and Hematology - [place] [address] [facility] [address] [place] [address] Hernandez Nunn MD [address] [facility] [address] [place] [address] Health Maintenance Due Date Last Done Comments Traditional Medicare (ACO) A nnual Wellness Visit 1969 PNEUMOCOCCAL VACCINE 50+ YEA RS (1 of 1 - PCV) 1998 ZOSTER VACCINE (2 of 3) 08/09/2013 06/14/2013 DTAP/TDAP/TD VACCINES (2 - T d or Tdap) 03/20/2015 03/20/2005 RSV VACCINE (60+ or ) (1 - 1-dose 75+ series) 2023 INFLUENZA VACCINE (#1) 2024 4, 09/07/2013, 10/13/2012, Additional history exists COLORECTAL SCREENING Discontinued 09/19/2019, 10/11/2012, 10/11/2012 Colorectal Cancer Screening Discontinued OSTEOPOROSIS SCREENING Completed 4, 02/05/2024, 01/02/2023, Additional history exists FIT-DNA Q 3 years Discontinued FIT/FOBT Q 1 year Discontinued Flex Sig/CT Colonography Q 5 years Discontinued Medical Devices Implanted Type Area Digital Sales Assistant Device Identifier Shelf Expiration Date Model / Serial / Lot Dental Top/Bottom-2x Dental Insurance MEDICARE PART A AND B FOR LIFE Member Subscriber Plan / Payer (Ef fective 2021-Present) Name:BEATRIS PERDOMO Relation to Subscriber:Spouse Name:TEE PERDOMO Date of :1899 (Home) Address: [address] [place], [place] [id number] Payer ID:Not on file Group ID:Not on file Type: Address: [place] [id number] MEDICARE PART A AND B FOR LIFE Member Subscriber Plan / Payer ( fective 2021-Present) Name:BEATRIS PERDOMO Relation to Subscriber:Spouse Name:TEE PERDOMO Date of :1899 (Home) Address: [address] [place] [id number] Payer ID:Not on file Group ID:Not on file Type: Address: [place] [id number] [employer] Advance Directives For more information, please contact: [phone] * Full Code (Latest Code Status on File) Date Activated Date Inactivated Comments 02/02/2024 6:17 AM 02/02/2024 2:20 PM Care Teams Service Establishment Attendant Relationship Specialty Start Date End Date Tian Mary MD [address] [place] [phone] PCP - General Family Practice 04/02/23
--- OUTSIDE RECORDS SUMMARY | 2025-01-20 12:18 | XMS_ITS | Encounter Summary ---
Author Organization [facility] Address [address] [place] [address] Care Team Providers Care Dispenser Operator Name Role Phone Leticia Boyer DO Primary Care Provider + Encounter Details Date Type Department Care Team (Late st Contact Info) Description 01/06/2023 Treatment [facility] [address] [place] [address] Gabrielle Crocker MD [address] [facility] [address] [place] [address] Social History Tobacco Use Types Packs/Day Years Used Date Smoking Tobacco: Never Smokeless Tobacco: Never Comments Unknown Sex and Gender Information Value Date Recorded Sex Assigned at Not on file Legal Sex Female 8:53 AM CDT Gender Identity Not on file Sexual Orientation Not on file documented as of this encounter Plan of Treatment Not on file documented as of this encounter Visit Diagnoses Not on filedocumented in this encounter Care Teams Dispenser Operator Relationship Specialty Start Date End Date Leticia Boyer DO [address] [place] [phone] PCP - General Family Medicine 06/18/22 documented as of this encounter
--- OUTSIDE RECORDS SUMMARY | 2025-01-20 12:18 | XMS_ITS | Referral Summary ---
Author Organization [facility] Address [address] [place] [address] Care Team Providers Care Hospital Security Officer Name Role Phone Leticia Boyer DO Primary [...] 1 tablet (50 mcg total) by mouth boot maker before breakfast Active pravastatin (PRAVACHOL) 10 mg [...] osteoporosis wit hout current pathological fracture 01/02/2023 Social History Tobacco Use Types Packs/Day Years [...] 02/05/2024 2:29 PM CDT Plan of Treatment Not on file Procedures Procedure Name Priority Date/Time Associated Diagnosis [...] Bone mineral density was performed on a HoloNanomech Discovery Densitometer. Based on machine cross-calibration and [...] by the International Society of Clinical Densitometry. [id number] Gabrielle Crocker MD IMG DXA PROCEDURES Final R esult from Last 3 Months or Most Recently Relevant to Health Maintenance Insurance MEDICARE [employer] MEDICARE FOR LIFE Care Teams Hospital Security Officer Relationship Specialty Start Date End Date Leticia Boyer DO [address] [place] [id number] PCP - General Family Medicine 06/18/22
--- OUTSIDE RECORDS SUMMARY | 2025-01-20 12:18 | XMS_ITS | Clinical Summary ---
Author Organization [facility] Address [address] [place] [phone] Care Team Providers Care Sampler And Test Preparer Name Role Phone Leo Boyer Primary Care Provider Allergies Active Allergy Reactions Criticality Noted Date Comments Sulfa Antibiotics Unknown 05/06/2021 Medications spironolactone 50 MG tablet Take 50 mg by mouth daily. Active brimonidine-tomas olol 0.2-0.5 % ophthalmic solution 1 drop every 12 (twelve) hours. Active olmesartan 5 MG tablet Take 20 mg by mouth daily. Active levothyroxine 50 MCG tablet Take 50 mcg by mouth every morning. Active pravastatin 10 MG tablet Take 10 mg by mouth nightly at bedtime. Active omeprazole 20 MG capsule Take 20 mg by mouth daily. Active cranberry 500 MG Cap Take 1 capsule by mouth daily. Active busPIRone 7.5 MG tablet Take 7.5 mg by mouth 2 (two) times daily. Active Immunizations Name Administration Dates Next Due MODERNA COVID-19 (12+) MRNA, LNP-S, PF, 100 MCG/ 0.5 ML DOSE 01/21/2021,12/24/2020 Social History Tobacco Use Types Packs/Day Years Used Date Smoking Tobacco: Never Smokeless Tobacco: Never Alcohol Use Standard Drinks/Week Comments Yes 0 (1 standard drink = 0.6 oz pur e alcohol) occasionally Comments Unknown Sex and Gender Information Value Date Recorded Sex Assigned at Not on file Legal Sex Female 1:28 PM CDT Gender Identity Not on file Sexual Orientation Not on file Last Filed Vital Signs Vital Sign Reading Time Taken Comments Blood Pressure 153/75 05/06/2021 1:39 PM CDT Pulse 81 05/06/2021 1:39 PM CDT Temperature 36.3 C (97.3 F) 05/06/2021 1:39 PM CDT Respiratory Rate 16 05/06/2021 1:39 PM CDT Oxygen Saturation 98% 05/06/2021 1:39 PM CDT Inhaled Oxygen Concentration - - Weight 79.4 kg (175 lb) 05/06/2021 1:39 PM CDT Height 168.9 cm (5' 6.5 ) 05/06/2021 1:39 PM CDT Body Mass Index 27.82 05/06/2021 1:39 PM CDT Plan of Treatment Health Maintenance Due Date Last Done Comments Hepatitis C 1968 Annual Medicare Wellness Visit 2013 Pneumococcal Vaccine: 65+ Years (1 of 1 - PCV) 2013 Zoster Vaccines (2 of 3) 08/09/2013 06/14/2013 DTaP, Tdap and Td Vaccines (2 - Td or Tdap) 03/20/2015 03/20/2005 RSV Immunization or 60+ Years (1 - 1-dose 75+ series) 2023 COVID-19 Vaccine ( season) 2024 02/19/2022, 09/12/2021, 01/21/2021, Additional history exists Influenza Adult (#1) 2024 10/13/2012, 08/16/2010, 08/16/2007 Dexa Scan (General) Completed 04/18/2022 Meningococcal B Vaccine Aged Out No l onger eligible based on patient's age to complete this topic Meningococcal Vaccine Aged Out No marizol jes eligible based on patient's age to complete this topic RSV Immunizations Under 20 Months Aged Out No longer eligible based on patient's age to complete this topic Procedures Procedure Name Priority Date/Time Associated Diagnosis Comments BONE DENSITY/DEXA Routine 04/18/2022 12: 30 PM CDT Asymptomatic menopausal state from Last 3 Months or Most Recently Relevant to Health Maintenance Results * BONE DENSITY/DEXA (04/18/2022 12:30 PM CDT) Anatomical Region Laterality Modality Bone Bone Density 04/18/2022 12:5 7 PM CDT Impressions 04/18/2022 12:58 PM CDT IMPRESSION: Bone density within osteopenic range corresponding to low fracture risk, as detailed above. Ordered By: LEO BOYER Interpreted By: Melissa Lamas, 04/18/2022 12:57 PM Narrative 04/18/2022 12:58 PM CDT BONE DENSITY/DEXA EXAM DATE/TIME: 04/18/2022 12:15 PM CLINICAL HISTORY: 71-year-old asymptomatic postmenopausal female. COMPARISON: None available. FINDINGS: L2-L4: Bone mineral density 0.91 g/sq cm. T score -1.5. Z score 0.9. Moderate osteopenia. Low fracture risk. Left femoral neck: Bone mineral density 0.62 g/sq cm. T score -2.0. Z score 0.0. Very osteopenic range. Low fracture risk. Procedure Note Moe Lamas MD - 04/18/2022 BONE DENSITY/DEXA EXAM DATE/TIME: 04/18/2022 12:15 PM CLINICAL HISTORY: 71-year-old asymptomatic postmenopausal female. COMPARISON: None available. FINDINGS: L2-L4: Bone mineral density 0.91 g/sq cm. T score -1.5. Z score 0.9. Moderate osteopenia. Low fracture risk. Left femoral neck: Bone mineral density 0.62 g/sq cm. T score -2.0. Z score 0.0. Very osteopenic range. Low fracture risk. IMPRESSION: Bone density within osteopenic range corresponding to low fracture risk,as detailed above. Ordered By: LEO BOYER Interpreted By: Melissa Lamas, 04/18/2022 12:57 PM Leo Boyer DO DEXA Final Resul t from Last 3 Months or Most Recently Relevant to Health Maintenance Insurance MEDICARE [employer] Care Teams Sampler And Test Preparer Relationship Specialty Start Date End Date Leo Boyer DO PCP - General FAMILY PRACTICE 06/06/21
[2025-01-20 14:21] LABS: Alanine Aminotransferase 21 U/L (6-35); Albumin Level 4.5 g/dL (3.5-5.1); Alkaline Phosphatase 72 U/L (38-126); Anion Gap 8 mmol/L (4-12); Aspartate Amino Transferase 27 U/L (14-36); Bilirubin,Total 0.2 mg/dL (0.2-1.3); Blood Urea Nitrogen 13 mg/dL (7-17); Calcium 10.2 mg/dL (8.4-10.2); Carbon Dioxide 28 mmol/L (22-30); Chloride 99 mmol/L (98-107); Estimated Glomerular Filt Rate > 60; Glucose 104 mg/dL (65-110); Potassium 4.8 mmol/L (3.4-5.0); Sodium 135 mmol/L (137-145)
[2025-01-22 04:04] LABS: CA 15-3 9 U/mL (<32)
== END 2025-01-20 11:25 | disposition home or self-care (01) ==
LOC: ANHLAB 11:25
PROVIDERS: PCP Nurse Practitioner Family; Visit Provider Internal Medicine Hematology & Oncology
DX: C50.412 Malignant neoplasm of upper-outer quadrant of left female breast (principal); Z17.0 Estrogen receptor positive status [ER+]
CPT/HCPCS: 36415; 80053; 85025; 86300

== ENCOUNTER 2025-07-06 08:45 | Outpatient (CLI) | payer MEDICARE, OTHER, SELFPAY ==
--- OUTSIDE RECORDS SUMMARY | 2025-07-05 10:10 | XMS_ITS | Encounter Summary ---
Author Organization [facility] Address [address] [place] [address] Phone Care Team Providers Care Executive Associate Name Role Phone Leticia Boyer DO Primary Care Provider + Reason for Visit * Reason Comments Osteoporosis * Diagnostic Imaging (Routine) - Closed Specialty Diagnoses / Procedures Referred By Contac t Referred To Contact Diagnoses Age-related osteoporosis without current pathological fracture Procedures Dexa TBS Axial Skeleton Bone Density 1 or more sites Gabrielle Crocker MD Phone: tel: fax: [facility] (All Locations) Referral ID Status Reason Start Date Expiration Date Visits Re quested Visits Authorized [id number] Closed 02/05/2024 07/05/2025 20 20 Encounter Details Date Type Department Care Team (Latest Contact Info) Description 07/05/2025 10:10 AM CDT Clinical Support [facility] [address] [place] [address] [address] [place] [address] Age-related osteoporosis without current pathological fracture Social History Tobacco Use Types Packs/Day Years Used Date Smoking Tobacco: Never Smokeless Tobacco: Never Comments Unknown Sex and Gender Information Value Date Recorded Sex Assigned at Not on file Legal Sex Female 8:53 AM CDT Gender Identity Not on file Sexual Orientation Not on file documented as of this encounter Plan of Treatment Not on file documented as of this encounter Procedures Procedure Name Priority Date/Time Associated Diagnosis Comments DEXA TBS AXIAL SKELETON BONE DENSITY 1 OR MORE SITES Schedule Routine, Read Routine (OP Routine) 07/05/2025 9:36 AM CDT Age-related osteoporosis without current pathological fracture documented in this encounter Results * Dexa TBS Axial Skeleton Bone Density 1 or more sites (07/05/2025 9:36 AM CDT) Anatomical Region Laterality Modality Wrist, Body N/A Radiographic Samira ging Narrative 07/05/2025 11:12 AM CDT Patient Name: Beatris Campo Date of : 1950 Date of scan: 07/05/2025 Bone mineral density was performed on a HoloDashride Discovery Densitometer. Based on machine cross-calibration and precision studies the least significant changes of this densitometer is 0.024 g/cm2 at the spine, 0.020 g/cm2 at the total proximal femur, and 0.014g/cm2 at the forearm. HISTORY: This is a 74 y.o. postmenopausal female with a history of breast cancer, low bone mass, and vitamin D deficiency. She reports that she has never smoked. She has never used smokeless tobacco. Currently on treatment with calcium, vitamin D, zoledronic acid (Reclast), tamoxifen, anticoagulants, thyroid hormone, and diuretics and current complaint of back pain. INDICATIONS: Menopause status, treatment monitoring, history of prior pelvic fracture, vitamin D deficiency, and history of low bone mass. FINDINGS: BONE MINERAL DENSITY OF THE LUMBAR SPINE Bone Mineral Density (BMD) of the lumbar spine was measured from L1-L4 and the average density was calculated to be 0.987 gm/cm2. This corresponds to a T-score (standard deviations from the mean of young adults) of -0.5. When compared to the previous study of 02/05/2024 there has been a 0.040 gm/cm (4.2%) increase in bone density that is considered significant. BONE MINERAL DENSITY OF THE PROXIMAL FEMUR Bone Mineral Density (BMD) of the left hip total was found to be 0.715 gm/cm2. This corresponds to a T-score standard deviations from the mean of young adults of -1.9. Femoral neck is 0.645 gm/cm2 with a T-score (standard deviations from the mean of young adults) of -1.8. When compared to the previous study of 02/05/2024 there has been a -0.020 gm/cm (-2.8%) decrease in bone density that is considered significant. SUMMARY: Bone mineral density shows evidence of low bone mass at the proximal femur and moderately increased fracture risk (Osteopenia). There is a significant increase noted in the spine and a significant decrease noted in the hip since the previous exam. There is an artifact in the lumbar spine scan that cannot be corrected and may affect estimation of bone density. The lumbar spine Trabecular Bone Score is 1.264 which suggests partially degraded bone microarchitecture compared to the general [...] scan interpretation were performed by Gabrielle Crocker M.D. who is certified by the International Society of Clinical Densitometry. [id number] Gabrielle Crocker MD IM DXA PROCEDURES Final R esult documented in this encounter Visit Diagnoses Diagnosis Age-related osteoporosis without current pathological fracture documented in this encounter Care Teams Executive Associate Relationship Specialty Start Date End Date Leticia Boyer DO [address] [place] [id number] PCP - General Family Medicine 06/18/22 documented as of this encounter
--- OUTSIDE RECORDS SUMMARY | 2025-07-05 10:40 | XMS_ITS | Encounter Summary ---
Author Organization [facility] Address [address] [place] [address] Phone Care Team Providers Care Record Clerk Name Role Phone Leticia Boyer DO Primary Care Provider + Reason for Visit * Reason Comments Osteoporosis Encounter Details Date Type Department Care Team (Late st Contact Info) Description 07/05/2025 10:40 AM CDT Office Visit [facility] [address] [place] [address] Gabrielle Crocker MD [address] [place], [place] [id number] Age-related osteoporosis without current pathological fracture (Primary Dx); Hx of breast cancer Social History Tobacco Use Types Packs/Day Years Used Date Smoking Tobacco: Never Smokeless Tobacco: Never Comments Unknown Sex and Gender Information Value Date Recorded Sex Assigned at Not on file Legal Sex Female 8:53 AM CDT Gender Identity Not on file Sexual Orientation Not on file documented as of this encounter Last Filed Vital Signs Vital Sign Reading Time Taken Comments Blood Pressure - - Pulse - - Temperature - - Respiratory Rate - - Oxygen Saturation - - Inhaled Oxygen Concentration - - Weight 79.1 kg (174 lb 6.4 oz) 07/05/2025 10:36 AM CDT Height 167.5 cm (5' 5.95) 07/05/2025 10:36 AM C DT Body Mass Index 28.2 07/05/2025 10:36 AM CDT documented in this encounter Patient Instructions * Patient Instructions* Gabrielle Crocker MD - 07/05/2025 10:40 AM CDT Bone Health Program Discharge and Information Sheet Contact: Call: [phone] or [phone] FAX: [phone] Name: Beatris Campo Thank you for choosing the [facility] Bone Health Program for consultation about your bone health! We hope that your experience with our program was informative, pleasant, and valuable. Following are a set of instructions that we ask you to read carefully and follow so that the recommenda tions you have received can be correctly implemented. PLAN: the following has been recommended as treatment for your bone health - Reclast (1 infusion every 12 months) - See further instructions below - Calcium 4974-1105 mg daily, through a combination of diet and supplements - Vitamin D 2000 IU daily - Weight bearing activity as tolerated (Walking is great!) - Fall prevention: be cautious in the winter months with regards to ice, snow and other slippery conditions both outside, in entry ways and in public buildings; use railings on stairs; remove unnecessary trip hazards from the home such as loose electrical cords and throw rugs - Please call the office with any new fracture or initiation of prednisone - Doctors visit and Bone Density Exam in 1 year Lab Test Results: If you have been given lab orders to have your blood drawn, please allow for a few days for the results to come back and your physician review them. Results are viewable by you in My Chart as soon as they become available. Your provider may add some comments as well. If you have not received your results or have not heard back from us after two weeks since your blood was drawn, please feel free to give our office a call at [phone] option # 1. Bone Density Testing: To ensure the best quality of care, we strongly recommend you have all your follow up bone density tests done at our center. Bone density tests cannot be compared between different facilities. If another physician requests a bone density test for you, please let her/him know that your bone density is being monitored by the [facility] Program. If your other providers have questions or would like a report of your bone density scans, they can contact [facility] [phone] or Medical Records at [phone]. Important! Always remember to stop taking your calcium supplements 24 hours before you are scheduled to have your bone density test at your next visit. If you need to make changes to your follow-up appointment or are running late to your visit at the Bone Health Program, please contact us as soon as possible at [phone] ([facility]), or [phone] ([facility]), or [phone] ([facility]). We work on a very tight schedule and depending on the circumstances it may be necessary to resched ule your appointment if no other time slot is available on the same day. [facility] patient portal allows you to view your medical records, test results, personal information,request prescription renewals, review past appointments, request new ones and securely communicate online with our office. Ask at the cover stitch machine operator desk about receiving an invite to join [facility] portal. For questions about accessing [facility] patient portal call [phone]. Feel free to visit our web site for further information on medications, diet, exercise and other things you can do to take charge of your bone health: [email or web address] Thank you for choosing the [facility] Program! Your Provider has recommended Reclast (zoledronic acid). Reclast is an infusion that you will receive once a year. The infusion will be administered by drip in an Infusion Center. Your Provider should have let you know if there are any labs that need to be completed before scheduling (blood levels of creatinine, calcium, vitamin D). Commercial Insurance Information: Your Reclast infusion can be scheduled at one of our [facility] Infusion Centers; [facility], [facility], or [facility] [address]. Your appointment can be scheduled once your lab results have been received and reviewed. Please allow up to 2 weeks for your lab results. The office staff will send an appointment request to the Infusion Center of your choice. Then the Infusion Center will contact you directly to schedule your Reclast Infusion. Once your appointment has been made at one of our [facility] Infusion Centers then our PrecertificationDepartment will obtain a Prior Authorization from your Insurance Company if one is required. If you have not heard from our office within 2 weeks, please contact us by sending a [employer] message or calling [phone]. Medicare Insurance Information: Your Reclast infusion can be scheduled at [facility] ([facility] Infusion at the [facility] [address]. Your appointment can be scheduled once your lab results have been received and reviewed. Please allow up to 2 weeks for your lab results. The [facility] and [facility] Infusion Centers have a 30-day expiration policy onthe bloodwork. This means you have 30 days from the time you have your labs completed to get your infusion. The office staff will send an order to the Infusion Center of your choice. The Infusion Center willcontact you directly to schedule your infusion. If you have not heard from our office within 2 weeks, please contact us by sending a [employer] message or calling [phone]. What should I expect from Reclast infusion? Reclast (zoledronic acid) reduces the number and function of cells that beak down bone (osteoclasts). This results in stabilization or even increase in bone density. The most common side effect is flu-like symptoms (muscle or join aches, fever) that typically resolve in a few hours and can be prevented by drinking 2- 3 glasses of water and taking a dose of acetaminophen (Tylenol) or ibuprofen (Advil) before the Reclast infusion. Normally to stay well hydrated, people should drink 64 ounces daily of water, which is 8 glasses of 8 ounces. Rare risks include jaw osteonecrosis and atypical femur fracture Normally these problems only occur at first infusion. If you have a reaction then taking an anti-histamine medications (Benadryl) may help. Additional information can be found at: [email or web address]; and [email or web address] documented in this encounter Progress Notes * Gabrielle Crocker MD - 07/05/2025 10:40 AM CDT Division of Bone and Mineral Disease Bone Health Program History of Present Illness Beatris Campo is a 74 year old female with osteoporosis who presents for follow- up after Reclast treatment. She received her second dose of Reclast last year without any issues. There have been no hospitalizations, new medications, fractures, or significant health changes in the past year. She experienced a fall in February while walking in sandals on a raised sidewalk but did not sustain any injuries or require medical attention. She is currently taking two Caltrate pills in the morning, each containing 250 mg of calcium, and aCentrum multivitamin providing an additional 300 mg of calcium and 1000 IU of vitamin D3. Her diet includes cheese and occasional milk consumption. She has been physically active, playing pickleball three times a week before a two-month stay in [place], and plans to resume now that she is back. No new medications, no recent illnesses, and stable height and weight compared to last year. Treatment history: Reclast 04/20/23, 05/13/2024 Fracture history: Pelvic fractures 2020 and 2021, no fall or trauma but had been moving and hiking and developed pain Calcium/Vitamin D: Calcium 2 pills in morning (each has 250 mg calcium). She also take centrum MVI-centrum with 300 mg calcium and 1000 IU of D3. She eats cheese daily-at least1 serving daily. Occasional milk. 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 She started tamoxifen 12/2022. - hypothyroidism after partial thyroidectomy VITALS: Ht 167.5 cm (5' 5.95) Wt 79.1 kg (174 lb 6.4 oz) BMI 28.20 kg/m?? Body mass index is 28.2 kg/m??. GENERAL: Well-developed 74 y.o. female in good health and no acute distress. HEENT: Normocephalic; no head deformities; normal sclerae. MUSCULOSKELETAL: No signs of joint swelling or effusion EXTREMITIES: No bowing or other deformities, full range of motion of upper or lower extremities Bone Mineral Density: Dexa TBS Axial Skeleton Bone Density 1 or more sites Patient Name: Beatris Campo Date of : 1950 Date of scan: 07/05/2025 Bone mineral density was performed on a [employer] Densitometer. Based on machine cross-calibration and [...] density scan were prepared by Bri Lea) DINAE who is accredited by the International Society of Clinical Densitometry. The overall patient assessment and scan interpretation were performed by Gabrielle Crocker M.D. who is certified by the International Society of Clinical Densitometry. [id number] Laboratory: Lab Results Component Value Date GLUCOSE 101 04/19/2024 CALCIUM 9.4 04/19/2024 SODIUM 133 (L) 04/19/2024 POTASSIUM 4.6 04/19/2024 CO2 26 04/19/2024 CHLORIDE 99 04/19/2024 BUNSER 10 04/19/2024 CREATININE 0.86 04/19/2024 Lab Results Component Value Date ALT 12 04/01/2023 AST 16 04/01/2023 ALKPHOS 57 04/01/2023 BILITOT 0.3 04/01/2023 Lab Results Component Value Date PTH 35 01/02/2023 CALCIUM 9.4 04/19/2024 PHOS 2.8 01/02/2023 Lab Results Component Value Date 25HYDROVITD 44 01/02/2023 [id number] 36 04/19/2024 TESTS ORDERED: Orders Placed This Encounter Procedures Vitamin D 25 hydroxy Phosphorus PTH Comprehensive metabolic panel Assessment & Plan Osteoporosis with history of fragility fracture of spine Osteoporosis with improved spine bone density and slight decline in hip bone density. No obvious explanation to decline in bone density. No new fractures and no updates to health. Continued Reclast treatment appropriate. Discussed alternatives-prolia would be lifelong, forteo contraindicated due toradiation, do not think necessary to transition to Evenity. Discussed post-infusion flu- like symptoms and rare risks of Reclast. Emphasized fall prevention and calcium/vitamin D intake. - Proceed with third Reclast infusion. - Ensure hydration on infusion day. - Consider Tylenol for post-infusion symptoms. - Order blood work for kidney function and vitamin D and to rule out reasons for decline in bone density - Check vitamin D level in blood work. - Order Reclast infusion at [place] post blood work and insurance approval. - Emphasize fall prevention and supportive footwear. - Discussed side effects of IV bisphosphonate therapy including but not limited to a flu-like syndrome, arthralgia, myalgia, delayed jaw bone healing. We also reviewed risk of atypical femur fracture. She is to return to the clinic in about 1 year. This patient has verbally consented to recording this visit in order to utilize AI technology in generating this note. documented in this encounter Plan of Treatment Not on file documented as of this encounter Results * Comprehensive metabolic panel (07/05/2025 11:23 AM CDT) Sodium 138 135 - 145 mmol/L Potassium, pl 4.9 3.3 - 4.9 mmol/L [facility] Chloride 104 97 - 110 mmol/L [facility] CO2 26 22 - 32 mmol/L [facility] Anion gap 8 2 - 15 mmol/L [facility] BUN 13 6 - 25 mg/dL [facility] Creatinine 0.90 0.60 - 1.10 mg/dL [facility] Glucose 97 70 - 199 mg/dL [facility] Comment: Interpretive Data Fasting glucose >/= 126 mg/dl is diagnostic for diabetes. Fasting is defined as no caloric intake for at least 8 hours. Fasting glucose between 100 mg/dl to 125 mg/dl is diagnostic of prediabetes. In a patient with classic symptoms of hyperglycemia or hyperglycemic crisis, a random glucose >/= 200 mg/dl is diagnostic for diabetes. In the absence of unequivocal hyperglycemia, results should be confirmed by repeat testing. The classification and Diagnosis of Diabetes Diabetes Care 2021; 46: S19-S40. Current interpretive data was last revised 2022. Calcium 9.6 8.5 - 10.3 mg/dL [facility] Bilirubin, total 0.2 0.1 - 1.2 mg/dL [facility] Protein, pl 7.1 6.5 - 8.5 g/dL [facility] Albumin 4.3 3.5 - 5.0 g/dL [facility] Alk phos 52 40 - 130 Units/L [facility] ALT 27 7 - 45 Units/L [facility] AST 29 10 - 45 Units/L [facility] Blood 07/05/2025 11:2 3 AM CDT 07/05/2025 2:18 PM CDT Gabrielle Crocker MD LAB BLOOD ORDERABLES Final Result [facility] [employer] [place] [address] * PTH (07/05/2025 11:23 AM CDT) [facility] PTH 29 15 - 65 pg/mL Blood 07/05/2025 11:2 3 AM CDT 07/05/2025 2:18 PM CDT Gabrielle Crocker MD LAB BLOOD ORDERABLES Final Result Performing Organization Address City/[facility]/ZIP Co de Phone Number [facility] [employer] [place] [address] * Phosphorus (07/05/2025 11:23 AM CDT) [facility] Phosphorus, pl 2.5 2.3 - 4.5 mg/dL Blood 07/05/2025 11:2 3 AM CDT 07/05/2025 2:18 PM CDT Gabrielle Crocker MD LAB BLOOD ORDERABLES Final Result Performing Organization Address City/[facility] Co de Phone Number [facility] [employer] [place] [address] * Vitamin D 25 hydroxy (07/05/2025 11:23 AM CDT) Vitamin D 25-OH 46 30 - 80 ng/mL Blood 07/05/2025 11:2 3 AM CDT 07/05/2025 2:18 PM CDT Gabrielle Crocker MD LAB BLOOD ORDERABLES Final Result Performing Organization Address City/State/ZIP Co fl Phone Number [facility] Department [place] [address] documented in this encounter Visit Diagnoses Diagnosis Age-related osteoporosis without current pathological fracture- Primary Hx of breast cancer Personal history of malignant neoplasm of breast documented in this encounter Discontinued Medications Medication Sig Discontinue Reason Start Date End Da te HYDROcodone-acetaminophe n (NORCO) 5-325 mg per tablet Take 1 tablet by mouth every 4 (four) hours as needed Therapy completed 02/02/2024 07/05/2025 calcium carbonate-vitamin D3 (CALTRATE 600 + D) 1500 mg (600 mg elemental) -400 units per tablet Take 1 tablet by mouth daily 07/05/2025 documented as of this encounter Historical Medications * This list may reflect changes made after this encounter. cycloSPORINE (RESTASIS) 0.05 % ophthalmic emulsion 06/15/2025 ketoconazole (NIZORAL) 2 % shampoo APPLY TO THE AFFECTED AREA 2 TIMES A WEEK 03/22/2025 calcium carbonate-vitami n D3 (CALTRATE 600 + D) 1500 mg (600 mg elemental) -400 units per tablet Take 1 tablet by mouth daily 07/05/2025 added in this encounter Care Teams Record Clerk Relationship Specialty Start Date End Date Leticia Boyer DO [address] [place] [id number] PCP - General Family Medicine 06/18/22 documented as of this encounter
--- OUTSIDE RECORDS SUMMARY | 2025-07-05 11:20 | XMS_ITS | Encounter Summary ---
Author Organization [facility] Healthcare Address [address] [place] [address] Care Team Providers Care Legal Services Manager Name Role Phone Leticia Boyer DO Primary Care Provider + Encounter Details Date Type Department Care Team (Late st Contact Info) Description 07/05/2025 11:20 AM CDT Lab [address] [place] [address] Age-related osteoporosis without current pathological fracture; Hx of breast cancer Social History Tobacco [...] Procedure Name Priority Date/Time Associated Diagnosis Comments EGFR Routine 07/05/2025 11:23 AM CDT Age-related osteoporosis without current pathological fracture Hx of breast cancer VITAMIN D 25 HYDROXY Routine 07/05/2025 11:23 AM CDT Age-related osteoporosis without current pathological fracture Hx of breast cancer PHOSPHORUS Routine 07/05/2025 11:23 AM CDT Age-related osteoporosis without current pathological fracture Hx of breast cancer PTH Routine 07/05/2025 11:23 AM CDT Age-related osteoporosis without current pathological fracture Hx of breast cancer COMPREHENSIVE METABOLIC PANEL Routine 07/05/2025 11:23 AM CDT Age-related osteoporosis without current pathological fracture Hx of breast cancer documented in this encounter Results * eGFR (07/05/2025 11:23 AM CDT) eGFR 66 >=60 mL/min/1. 73 m2 Comment: Interpretive Data Reference Interval Normal >/= 90 mL/min/1.73m2 Mildly decreased* 60 - 89 mL/min/1.73m2 Mildly to moderately decreased 45 - 59 mL/min/1.73m2 Moderately to severely decreased 30 - 44 mL/min/1.73m2 Severely decreased 15 - 29 mL/min/1.73m2 Kidney Failure < 15 mL/min/1.73m2 *Relative to young adult level Estimated glomerular filtration rate is determined by the 2020 CKD-EPI equation recommended by the National Kidney Foundation (A Unifying Approach to GFR Estimation: Recommendations of the NKF-ASK Task Force on Reassessing the Inclusion of Race in Diagnosing Kidney Disease, JASN 2020). The CKD-EPI equation should not be used for patients with unstable renal function and has not been validated in children and those over 70. Current interpretive data was last reviewed 2021. Blood 07/05/2025 11:2 3 AM CDT 07/05/2025 2:25 PM CDT Gabrielle Crocker MD LAB BLOOD ORDERABLES Final Result [facility] [place] [address] * Vitamin D 25 hydroxy (07/05/2025 11:23 AM CDT) Vitamin D 25-OH 46 30 - 80 ng/mL Blood 07/05/2025 11:2 3 AM CDT 07/05/2025 2:18 PM CDT Gabrielle Crocker MD LAB BLOOD ORDERABLES Final Result [facility] [place] [address] * Phosphorus (07/05/2025 11:23 AM CDT) [facility] Phosphorus, pl 2.5 2.3 - 4.5 mg/dL Blood 07/05/2025 11:2 3 AM CDT 07/05/2025 2:18 PM CDT Gabrielle Crocker MD LAB BLOOD ORDERABLES Final Result Performing Organization Address [facility] Co de Phone Number [facility] [place] [address] * PTH (07/05/2025 11:23 AM CDT) [facility] PTH 29 15 - 65 pg/mL Blood 07/05/2025 11:2 3 AM CDT 07/05/2025 2:18 PM CDT Gabrielle Crocker MD LAB BLOOD ORDERABLES Final Result Performing Organization Address [facility] de Phone Number [facility] [address] * Comprehensive metabolic panel (07/05/2025 11:23 AM CDT) [facility] Sodium 138 135 - 145 mmol/L Potassium, pl 4.9 3.3 - 4.9 mmol/L [facility] Chloride 104 97 - 110 mmol/L [facility] CO2 26 22 - 32 mmol/L [facility] Anion gap 8 2 - 15 mmol/L [facility] BUN 13 6 - 25 mg/dL [facility] Creatinine 0.90 0.60 - 1.10 mg/dL [facility] Glucose 97 70 - 199 mg/dL [facility] Comment: Interpretive Data Fasting glucose >/= 126 [...] 2022. Calcium 9.6 8.5 - 10.3 mg/dL [facility] Bilirubin, total 0.2 0.1 - 1.2 mg/dL [facility] Protein, pl 7.1 6.5 - 8.5 g/dL [facility] Albumin 4.3 3.5 - 5.0 g/dL [facility] Alk phos 52 40 - 130 Units/L [facility] ALT 27 7 - 45 Units/L [facility] AST 29 10 - 45 Units/L [facility] Blood 07/05/2025 11:2 3 AM CDT 07/05/2025 2:18 PM CDT us Gabrielle Crocker MD LAB BLOOD ORDERABLES Final Result [facility] [place] [address] documented in this encounter Visit Diagnoses Diagnosis Age-related osteoporosis without current pathological fracture Hx of breast cancer Personal history of malignant neoplasm of breast documented in this encounter Care Teams Legal Services Manager Relationship Specialty Start Date End Date Leticia Boyer DO [address] [place] [id number] PCP - General Family Medicine 06/18/22 documented as of this encounter
--- NOTE | ~2025-07-06 | MM_ITS ---
EXAMINATION: MM screening suellen BI w jeevan HISTORY: Screening mammogram TECHNIQUE: Craniocaudal and mediolateral oblique 3-D tomosynthesis images were obtained and synthetic 2-D images were generated. CAD analysis was submitted and interpreted. COMPARISON: 06/13/2024 BREAST PARENCHYMAL COMPOSITION:Not Dense. There are scattered areas of fibroglandular density. FINDINGS: Stable fat necrosis at the outer left breast. No suspicious mass, calcification, or architectural distortion are identified in either breast to suggest malignancy. There has been no suspicious interval change. IMPRESSION: No mammographic evidence of malignancy. Recommend routine screening mammography in one year. BI-RADS Category 2: Benign finding(s). Reviewed, dictated and finalized at location .
--- OUTSIDE RECORDS SUMMARY | 2025-07-06 09:01 | XMS_ITS | Clinical Summary ---
Author Organization [facility] Fernando Sexton Address [address] [place] [address] Care Team Providers Care Human Resources Training Manager Name Role Phone Unavailable Primary Care Provider Unavailabl e Allergies Active Allergy Reactions Criticality Noted Date [...] Drop in both eyes daily at bedtime. Active OTHER Prevagan one tablet daily Active tamoxifen (NOLVADEX) 20 mg tabletIndicatio ns:Malignant neoplasm of upper-outer quadrant of left breast in female, estrogen receptor positive (CMS/HCC) Take 1 Tablet (20 mg) by mouth daily. 90 Tablet 3 Active Active Problems Problem Noted Date Diagnosed Date Personal history of malignant neoplasm of breast 02/02/2024 S/P partial mastectomy, left 02/02/2024 Personal history of radiation therapy 02/02/2024 Postoperative breast asymmetry 02/02/2024 Encounters Date Type Department Care Team Description 05/31/2025 External Device Data STL ABSTRACTION Provider, Abstract 05/30/2025 External Device Data STL ABSTRACTION Provider, Abstract 05/09/2025 External Device Data ST[facility] ABSTRACTION Provider, Abstract 05/02/2025 External Device Data STL ABSTRACTION Provider, Abstract 04/11/2025 External Device Data STL ABSTRACTION Provider, Abstract 04/06/2025 External Device Data STL ABSTRACTION Provider, Abstract 04/05/2025 External Device Data STL ABSTRACTION Provider, Abstract [...] Sign Reading Time Taken Comments Blood Pressure 132/80 02/02/2025 10:48 AM CDT Pulse 68 02/02/2025 10:48 AM CDT Temperature 36 C (96.8 F) 02/02/2025 10:48 AM CDT Respiratory Rate 16 02/02/2025 10:48 AM CDT Oxygen Saturation 98% 02/02/2025 10:48 AM CDT Inhaled Oxygen Concentration - - Weight 81.6 kg (180 lb) 02/02/2025 10:48 AM CDT Height 167.6 cm (5' 6) 03/21/2024 9:56 AM CDT Body Mass Index 29.05 03/21/2024 9:56 AM CDT Plan of Treatment Upcoming Encounters Date Type Department Care Team (Late st Contact Info) Description 08/09/2025 11:45 AM CDT Office Visit [facility] Oncology and Hematology - [place] [address] [facility] [address] [place] [address] Hernandez Nunn MD [address] [facility] [address] [place] [address] Health Maintenance Due Date Last Done Comments PNEUMOCOCCAL VACCINE 50+ YEA RS (1 of 1 - PCV) 1998 ZOSTER VACCINE (2 of 3) 08/09/2013 06/14/2013 DTAP/TDAP/TD VACCINES (2 - T d or Tdap) 03/20/2015 03/20/2005 RSV VACCINE (60+ or ) (1 - 1-dose 75+ series) 2023 INFLUENZA VACCINE (#1) 2025 4, 09/07/2013, 10/13/2012, Additional history exists OSTEOPOROSIS SCREENING 02/04/2029 4, 02/05/2024, 01/02/2023, Additional history exists COLORECTAL SCREENING Discontinued 09/19/2019, 10/11/2012, 10/11/2012 Colorectal Cancer Screening Discontinued FIT-DNA Q 3 years Discontinued FIT/FOBT Q 1 year Discontinued Flex Sig/CT Colonography Q 5 years Discontinued Medical Devices Implanted Type Area Menagerie Caretaker Device Identifier Shelf Expiration Date Model / Serial / Lot Dental Top/Bottom-2x Dental Insurance MEDICARE PART A AND B FOR LIFE MEDICARE PART A AND B FOR LIFE Member Subscriber Plan / Payer (Ef fective 2021-Present) Name:BEATRIS PERDOMO Relation to Subscriber:Spouse Name:TEE PERDOMO Date of :1899 (Home) Address: [address] [place] [id number] Payer ID:Not on file Group ID:Not on file Type: Address: [place] [id number] [employer] Advance Directives For more information, please contact: [phone] * Full Code (Latest Code Status on File) Date Activated Date Inactivated Comments 02/02/2024 6:17 AM 02/02/2024 2:20 PM
--- OUTSIDE RECORDS SUMMARY | 2025-07-06 09:01 | XMS_ITS | Encounter Summary ---
Author Organization [facility] Address [address] [place] [address] Phone Care Team Providers Care Mobile Heavy Equipment Mechanic Name Role Phone Leticia Boyer DO Primary Care Provider + Encounter Details Date Type Department Care Team (Late st Contact Info) Description 07/05/2025 Telephone [facility] [address] [facility] Medical Office Building [address] [place] [address] Gabrielle Crocker MD [address] [facility] [address] [place] [address] Social History Tobacco Use Types Packs/Day Years Used Date Smoking Tobacco: Never Smokeless Tobacco: Never Comments Unknown Sex and Gender Information Value Date Recorded Sex Assigned at Not on file Legal Sex Female 8:53 AM CDT Gender Identity Not on file Sexual Orientation Not on file documented as of this encounter Miscellaneous Notes * Telephone Encounter - Vicky Sheppard RMA - 07/05/2025 11:20 AM CDT Cont Reclast Per Dr.K Crocker To be done at [facility] Last dose 05/13/24 Therapy plan is in chart Labs pending as of 07/05/25 Please send appointment request when labs and insurance are back. * Telephone Encounter - Vicky Sheppard RMA - 07/05/2025 11:19 AM CDT Patient was seen by Dr. Crocker today for an office visit. The following was recommended for the patient Continue Reclast Additional Comments: -1 year -Labs -Infusion at [place] documented in this encounter Plan of Treatment Not on file documented as of this encounter Visit Diagnoses Not on filedocumented in this encounter Care Teams Mobile Heavy Equipment Mechanic Relationship Specialty Start Date End Date Leticia Boyer DO [address] [place] [address] PCP - General Family Medicine 06/18/22 documented as of this encounter
--- OUTSIDE RECORDS SUMMARY | 2025-07-06 09:01 | XMS_ITS | Clinical Summary ---
Author Organization [facility] Address [address] [place] [address] Care Team Providers Care Moisture Conditioner Operator Name Role Phone Leticia Boyer DO Primary Care Provider + Allergies Active Allergy Reactions Criticality Noted Date Comments Bimatoprost Unknown 06/06/2008 Brimonidine-Timolol Itching,Swelling Medium 08/10/2019 Hydrogen Peroxide Swelling Medium 09/27/2010 Sulfa (Sulfonamide Antibiotics) Other (See comments) High 03/22/2025 Thiazides Cough Low 09/27/2010 Medications omeprazole (PriLOSEC) 40 mg capsule Take 1 capsule (40 mg total) by mouth daily Active spironolactone (ALDACTONE) 50 mg tablet Take 1 tablet (50 mg total) by mouth daily Active levothyroxine (SYNTHROID) 50 mcg tablet Take 1 tablet (50 mcg total) by mouth yarn sorter before breakfast Active pravastatin (PRAVACHOL) 10 mg [...] mouth daily Active busPIRone (BUSPAR) 10 mg tabletIndicati ons:Generalize d Anxiety Disorder Take 1 tablet (10 mg total) by mouth 3 (three) times a day Active cholecalcifero l (VITAMIN D-3) 1,000 unit capsule Take by mouth daily Active ferrous sulfate 325 mg (65 mg of elemental iron) tablet Take 1 tablet (325 mg total) by mouth daily Active latanoprost (XALATAN) 0.005 % ophthalmic solution 01/29/20 24 Active tamoxifen (NOLVADEX) 20 mg tablet Take 1 tablet (20 mg total) by mouth daily 11/25/19 24 Active timolol (TIMOPTIC) 0.5 % ophthalmic solution 01/29/20 24 Active ketoconazole (NIZORAL) 2 % shampoo APPLY TO THE AFFECTED AREA 2 TIMES A WEEK 03/22/20 25 Active cycloSPORINE (RESTASIS) 0.05 % ophthalmic emulsion 06/15/20 25 Active HYDROcodone-ac etaminophen (NORCO) 5-325 mg per tablet Take 1 tablet by mouth every 4 (four) hours as needed 02/02/20 24 025 Discontinued(Th erapy completed) calcium carbonate-compa min D3 (CALTRATE 600 + D) 1500 mg (600 mg elemental) -400 units per tablet Take 1 tablet by mouth daily 025 Discontinued Active Problems Problem Noted Date Diagnosed Date Age-related osteoporosis wit hout current pathological fracture 01/02/2023 Encounters Date Type Department Care Team Description 07/05/2025 11:[address] [facility] [address] [facility] [address] [place] [address] Age-related osteoporosis without current pathological fracture; Hx of breast cancer 07/05/2025 10:40 AM CDT Office Visit [facility] [address] [facility] [address] [place] [address] Gabrielle Corcker MD Age-related osteoporosis without current pathological fracture (Primary Dx); Hx of breast cancer 07/05/2025 10:10 AM CDT Clinical Support [facility] [address] [facility] [address] [place] [address] Age-related osteoporosis without current pathological fracture 07/05/2025 Telephone [facility] [address] [facility] Office Building [address] [place] [address] Gabrielle Crocker MD from Last 3 Months Family History Medical History Relation Name Comments Hip fracture Neg Hx Osteoporosis Neg Hx Social History Tobacco Use Types Packs/Day Years Used Date Smoking Tobacco: Never Smokeless Tobacco: Never Tobacco Cessation:Counseling Given: Not Answered Comments Unknown Sex and Gender Information Value [...] CDT Inhaled Oxygen Concentration - - Weight 79.1 kg (174 lb 6.4 oz) 07/05/2025 10:36 AM CDT Height 167.5 cm (5' 5.95) 07/05/2025 10:36 AM C DT Body Mass Index 28.2 07/05/2025 10:36 AM CDT Plan of Treatment Health Maintenance Due [...] 09/12/2021, Additional history exists Influenza Vaccine (#1) 2025 , 08/13/2021, 10/13/2012, Additional history exists Osteoporosis Screening-Bone Density Scan 07/05/2027 07/05/2025, 02/05/2024, 01/02/2023, Additional history exists Breast Cancer [...] current pathological fracture Hx of breast cancer DEXA TBS AXIAL SKELETON BONE DENSITY 1 OR MORE SITES Schedule Routine, Read Routine (OP Routine) 07/05/2025 9:36 AM CDT Age-related osteoporosis without current pathological fracture from Last 3 Months Results * eGFR (07/05/2025 11:23 AM CDT) [...] BLOOD ORDERABLES Final Result Performing Organization Address [facility] de Phone Number [facility] [employer] [address] * Vitamin D 25 hydroxy (07/05/2025 11:23 AM CDT) Vitamin D 25-OH 46 30 - 80 ng/mL Blood 07/05/2025 11:2 3 AM CDT 07/05/2025 2:18 PM CDT Gabrielle Crocker MD LAB BLOOD ORDERABLES Final Result Performing Organization Address [facility] de Phone Number [facility] [place] [employer] [place] [address] * Phosphorus (07/05/2025 11:23 AM CDT) Pathologist [facility] Phosphorus, pl 2.5 2.3 - 4.5 mg/dL Blood 07/05/2025 11:2 3 AM CDT 07/05/2025 2:18 PM CDT Gabrielle Crocker MD LAB BLOOD ORDERABLES Final Result Performing Organization Address [facility] [place] [address] * PTH (07/05/2025 11:23 AM CDT) Pathologist [facility] PTH 29 15 - 65 pg/mL Blood 07/05/2025 11:2 3 AM CDT 07/05/2025 2:18 PM CDT Gabrielle Crocker MD LAB BLOOD ORDERABLES Final Result [facility] Department [place] [address] * Comprehensive metabolic panel (07/05/2025 11:23 AM CDT) Sodium 138 135 - 145 mmol/L Potassium, pl 4.9 3.3 - 4.9 mmol/L [facility] Chloride 104 97 - 110 mmol/L [facility] CO2 26 22 - 32 mmol/L [facility] Anion gap 8 2 - 15 mmol/L [facility] BUN 13 6 - 25 mg/dL [facility] Creatinine 0.90 0.60 - 1.10 mg/dL [facility] Glucose 97 70 - 199 mg/dL [facility] Comment: Interpretive Data Fasting glucose [...] 2022. Calcium 9.6 8.5 - 10.3 mg/dL [facility] Bilirubin, total 0.2 0.1 - 1.2 mg/dL [facility] Protein, pl 7.1 6.5 - 8.5 g/dL [facility] Albumin 4.3 3.5 - 5.0 g/dL [facility] Alk phos 52 40 - 130 Units/L [facility] ALT 27 7 - 45 Units/L [facility] AST 29 10 - 45 Units/L [facility] Blood 07/05/2025 11:2 3 AM CDT 07/05/2025 2:18 PM CDT Gabrielle Crocker MD LAB BLOOD ORDERABLES Final Result [facility] Department [place] [address] * Dexa TBS Axial Skeleton Bone Density 1 or more sites (07/05/2025 9:36 AM CDT) Anatomical Region Laterality Modality Wrist, Body N/A Radiographic Samira ging Narrative 07/05/2025 11:12 AM CDT Patient Name: Beatris Campo Date of : 1950 Date of scan: 07/05/2025 Bone mineral density was performed on a [email or web address] Discovery Densitometer. Based on machine cross-calibration and [...] by the International Society of Clinical Densitometry. [id number] Gabrielle Crocker MD IMG DXA PROCEDURES Final R esult from Last 3 Months Insurance MEDICARE FOR LIFE MEDICARE [facility] Address: [address] [address] [place] [address] FOR LIFE Care Teams Moisture Conditioner Operator Relationship Specialty Start Date End Date Leticia Boyer DO [address] [place] [phone] PCP - General Family Medicine 06/18/22
--- OUTSIDE RECORDS SUMMARY | 2025-07-06 09:02 | XMS_ITS | Encounter Summary ---
Author Organization [facility] Healthcare Address [address] [place] [address] Care Team Providers Care Motor Grader Rough Grade Name Role Phone Leticia Boyer DO Primary Care Provider + Encounter Details Date Type Department Care Team (Late st Contact Info) Description 01/06/2023 Treatment [facility] [address] [place] [address] Gabrielle Crocker MD [address] [facility] [address] [place] [address] Social History Tobacco Use Types Packs/Day Years [...] on filedocumented in this encounter Care Teams Motor Grader Rough Grade Relationship Specialty Start Date End Date Leticia Byoer DO [address] [place] [phone] PCP - General Family Medicine 06/18/22 documented as of this encounter
== END 2025-07-06 08:46 | disposition home or self-care (01) ==
LOC: ANHFOHIMG 08:48
PROVIDERS: PCP Nurse Practitioner Family; Visit Provider Internal Medicine Hematology & Oncology
DX: Z12.31 Encounter for screening mammogram for malignant neoplasm of breast (principal)
CPT/HCPCS: 77063; 77067

== ENCOUNTER 2025-08-04 12:33 | Outpatient (CLI) | payer MEDICARE, OTHER, SELFPAY ==
--- OUTSIDE RECORDS SUMMARY | 2025-08-04 12:36 | XMS_ITS | Clinical Summary ---
Author Organization [facility] Address [address] [place] [address] Care Team Providers Care Cst Name Role Phone Leo Boyer Primary Care [...] mouth 2 (two) times daily. Active Immunizations Immunization Administration Dates Next Due MODERNA COVID-19 (12+) [...] 1:39 PM CDT Height 168.9 cm (5' 6.5) 05/06/2021 1:39 PM CDT Body Mass Index 27.82 05/06/2021 1:39 PM CDT Plan of Treatment Health Maintenance Due Date Last Done Comments Hepatitis C 1966 Pneumococcal Vaccine: 50+ Years (1 of 1 - PCV) 1998 Annual Medicare Wellness Visit 2013 Zoster Vaccines (2 of 3) 08/09/2013 06/14/2013 DTaP, Tdap and Td Vaccines (2 - Td or Tdap) 03/20/2015 03/20/2005 RSV Immunization or 60+ Years (1 - 1-dose 75+ series) 2023 COVID-19 Vaccine ( season) 2025 02/19/2022, 09/12/2021, 01/21/2021, Additional history exists Dexa Scan (General) Completed 04/18/2022 Meningococcal B [...] Recently Relevant to Health Maintenance Insurance MEDICARE [facility] Care Teams Cst Relationship Specialty Start Date End Date Leo Boyer DO PCP - General FAMILY PRACTICE 06/06/21
--- OUTSIDE RECORDS SUMMARY | 2025-08-04 12:36 | XMS_ITS | Encounter Summary ---
Author Organization [facility] Healthcare Address [address] [place] [address] Care Team Providers Care Tractor Trailer Truck Driver Name Role Phone Leticia Boyer DO Primary Care Provider + Encounter Details Date Type Department Care Team (Late st Contact Info) Description 01/06/2023 Treatment [facility] [address] [place] [address] Gabrielle Crocker MD [address] [facility] [address] [place] [address] Social History Tobacco Use Types Packs/Day Years [...] on filedocumented in this encounter Care Teams Tractor Trailer Truck Driver Relationship Specialty Start Date End Date Leticia Boyer DO [address] [place] [phone] PCP - General Family Medicine 06/18/22 documented as of this encounter
--- OUTSIDE RECORDS SUMMARY | 2025-08-04 12:36 | XMS_ITS | Clinical Summary ---
Author Organization [facility] Address [address] [place] [phone] Care Team Providers Care Nylon Hot Wire Cutter Name Role Phone Leticia Boyer DO Primary [...] 1 tablet (50 mcg total) by mouth antisqueak filler before breakfast Active pravastatin (PRAVACHOL) 10 mg [...] by mouth 3 (three) times a day As needed Active cholecalciferol (VITAMIN D-3) 1,000 unit capsule [...] (TIMOPTIC) 0.5 % ophthalmic solution 4 Active ketoconazole (NIZORAL) 2 % shampoo APPLY TO THE AFFECTED AREA 2 TIMES A WEEK 5 Active cycloSPORINE (RESTASIS) 0.05 % ophthalmic emulsion 5 Active calcium carbonate-vit D3-min 600 mg-10 mcg (400 unit) tablet Take 1 tablet by mouth daily Active Active Problems Problem Noted Date Diagnosed Date Age-related osteoporosis wit hout current pathological fracture 01/02/2023 Encounters Date Type Department Care Team Description 07/31/2025 1:38 PM CDT - 07/31/2025 11:59 PM CDT Hospital Encounter [address] [address] Age-related osteoporosis without current pathological fracture (Primary Dx) Discharge Disposition: Discharge to home or self care 07/12/2025 Orders Only [address] [address] Allyssa Gonzalez RN 07/07/2025 Results Follow-Up [facility] [address] [facility] Medical Office Building [address] [place] [phone] Gabrielle Crocker MD Comprehensive metabolic panel, PTH, Phosphorus, Additional followed-up results: 2 07/05/2025 11:20 AM CDT Lab [facility] [address] [place] [address] [address] [place] [address] Age-related osteoporosis without current pathological fracture; Hx of breast cancer 07/05/2025 10:40 AM CDT Office Visit [facility] [address] [place] [address] [address] [place] [address] Gabrielle Crocker MD Age-related osteoporosis without current pathological fracture (Primary Dx); Hx of breast cancer 07/05/2025 10:10 AM CDT Clinical Support [facility] [address] [facility] [address] [place] [address] Age-related osteoporosis without current pathological fracture 07/05/2025 Telephone [facility] [address] [facility] Medical Office Building [address] [place] [address] Gabrielle Crocker MD from Last [...] Td or Tdap) 03/20/2015 03/20/2005 Covid-19 Vaccine (2024-2 6 season) 2025 07/28/2022, 02/19/2022, 09/12/2021, Additional history exists Influenza [...] BLOOD ORDERABLES Final Result Performing Organization Address [facility] Co de Phone Number [facility] Department [place] [address] * Vitamin D 25 hydroxy (07/05/2025 11:23 AM CDT) Vitamin D 25-OH 46 30 - 80 ng/mL Blood 07/05/2025 11:2 3 AM CDT 07/05/2025 2:18 PM CDT Gabrielle Crocker MD LAB BLOOD ORDERABLES Final Result Performing Organization Address [facility] Co de Phone Number [facility] Department [place] [address] * Phosphorus (07/05/2025 11:23 AM CDT) Phosphorus, pl 2.5 2.3 - 4.5 mg/dL Blood 07/05/2025 11:2 3 AM CDT 07/05/2025 2:18 PM CDT Gabrielle Crocker MD LAB BLOOD ORDERABLES Final Result Performing Organization Address [facility] Co de Phone Number [facility] Department [place] [address] * PTH (07/05/2025 11:23 AM CDT) Pathologist [facility] PTH 29 15 - 65 pg/mL Blood 07/05/2025 11:2 3 AM CDT 07/05/2025 2:18 PM CDT Gabrielle Crocker MD LAB BLOOD ORDERABLES Final Result [facility] Department [place] [address] * Comprehensive metabolic panel (07/05/2025 11:23 AM CDT) Pathologist [facility] Sodium 138 135 - 145 mmol/L Potassium, pl 4.9 3.3 - 4.9 mmol/L [facility] Chloride 104 97 - 110 mmol/L [facility] CO2 26 22 - 32 mmol/L [facility] Anion gap 8 2 - 15 mmol/L [facility] BUN 13 6 - 25 mg/dL [facility] Creatinine 0.90 0.60 - 1.10 mg/dL [facility] Glucose 97 70 - 199 mg/dL [facility] Comment: Interpretive Data Fasting glucose >/= [...] classification and Diagnosis of Diabetes Diabetes Care 202; 46: S19-S40. Current interpretive data was last revised 2022. Calcium 9.6 8.5 - 10.3 mg/dL [facility] Bilirubin, total 0.2 0.1 - 1.2 mg/dL [facility] Protein, pl 7.1 6.5 - 8.5 g/dL [facility] Albumin 4.3 3.5 - 5.0 g/dL [facility] Alk phos 52 40 - 130 Units/L [facility] ALT 27 7 - 45 Units/L [facility] AST 29 10 - 45 Units/L [facility] Blood 07/05/2025 11:2 3 AM CDT 07/05/2025 2:18 PM CDT Gabrielle Crocker MD LAB BLOOD ORDERABLES Final Result [facility] Department [place] [address] * Dexa TBS Axial Skeleton Bone Density 1 or more sites (07/05/2025 9:36 AM CDT) Anatomical Region Laterality Modality Wrist, Body N/A Radiographic Samira ging Narrative 07/05/2025 11:12 AM CDT Patient Name: Beatris Campo Date of : 1950 Date of scan: 07/05/2025 Bone mineral density was performed on a [employer] Discovery Densitometer. Based on machine cross-calibration and [...] by the International Society of Clinical Densitometry. [id number] Gabrielle Crocker MD IMG DXA PROCEDURES Final R esult from Last 3 Months Insurance MEDICARE FOR LIFE MEDICARE FOR LIFE Care Teams Nylon Hot Wire Cutter Relationship Specialty Start Date End Date Leticia Boyer DO [address] [place] [id number] PCP - General Family Medicine 06/18/22
--- OUTSIDE RECORDS SUMMARY | 2025-08-04 12:36 | XMS_ITS | Clinical Summary ---
Author Organization [facility] Fernando Sexton Address [address] [place] [address] Care Team Providers Care Family Preservation Worker Name Role Phone Unavailable Primary Care Provider [...] Encounters Date Type Department Care Team Description 07/18/2025 External Device Data [facility] ABSTRACTION Provider, Abstract 07/12/2025 External Device Data [facility] ABSTRACTION Provider, Abstract 07/11/2025 External Device Data [facility] ABSTRACTION Provider, Abstract 07/11/2025 External Device Data [facility] ABSTRACTION Provider, Abstract 07/06/2025 Orders Only [facility] Oncology and Hematology [facility] [address] [facility] [address] [address] [address] [place] [id number] Hernandez Nunn MD 05/31/2025 External Device Data [facility] ABSTRACTION Provider, [...] Description 08/09/2025 11:45 AM CDT Office Visit [facility] Oncology and Hematology - [place] [address] [facility] [address] [place] [address] Hernandez Nunn MD [address] [place] [address] Health Maintenance Due Date Last [...] years Discontinued Medical Devices Implanted Type Area Bale Breaker Operator Device Identifier Shelf Expiration Date Model / Serial / Lot Dental Top/Bottom-2x Dental Procedures Procedure Name Priority Date/Time Associated Diagnosis Comments MAMMO SCREENING BILAT Routine 07/06/2025 11:41 AM CDT from Last 3 Months Results * MAMMO SCREENING BILAT (07/06/2025 11:41 AM CDT) Anatomical Region Laterality Modality Breast Bilateral Mammography Hernandez Nunn MD MAMMO ORDERABLES Final Result from Last 3 Months Insurance MEDICARE PART A AND B [employer] FOR LIFE MEDICARE PART A AND B [employer] FOR LIFE RX [employer] Advance Directives For more information, please contact: [phone] * Full Code (Latest Code Status on File) Date Activated Date Inactivated Comments 02/02/2024 6:17 AM 02/02/2024 2:20 PM
[2025-08-04 12:45] LABS: Hematocrit 34.0 % (37.0-47.0); Hemoglobin 11.3 g/dL (12.0-15.0); Immature Granulocyte Percent A 0.2 % (0-0.5); Lymphocytes Absolute Auto 1.38 K/mm3 (0.9-3.2); Mean Corpuscular HGB Conc 33.2 g/dl (32-36); Mean Corpuscular Hemoglobin 31.3 pg (26-34); Mean Corpuscular Volume 94.2 fl (80-100); Nucleated Red Blood Cells Absolute Auto 0.000 K/mm3 (0.0-0.012); Nucleated Red Blood Cells Perc 0.0 % (0.0-0.2); Platelet Count Result 203 k/mm3 (150-375); Red Blood Count 3.61 M/mm3 (4.2-5.4); White Blood Count 5.5 K/mm3 (4.5-10.0)
[2025-08-04 14:15] LABS: Alanine Aminotransferase 25 U/L (6-35); Albumin Level 4.4 g/dL (3.5-5.1); Alkaline Phosphatase 57 U/L (38-126); Anion Gap 7 mmol/L (4-12); Aspartate Amino Transferase 46 U/L (14-36); Bilirubin,Total 0.3 mg/dL (0.2-1.3); Blood Urea Nitrogen 18 mg/dL (7-17); Calcium 9.2 mg/dL (8.4-10.2); Carbon Dioxide 25 mmol/L (22-30); Chloride 99 mmol/L (98-107); Estimated Glomerular Filt Rate 58; Glucose 131 mg/dL (65-110); Potassium 4.4 mmol/L (3.4-5.0); Sodium 131 mmol/L (137-145); Total Protein 7.2 g/dL (6.3-8.2)
== END 2025-08-04 12:34 | disposition home or self-care (01) ==
LOC: ANHLAB 12:34
PROVIDERS: PCP Nurse Practitioner Family; Visit Provider Internal Medicine Hematology & Oncology
DX: C50.412 Malignant neoplasm of upper-outer quadrant of left female breast (principal); Z17.0 Estrogen receptor positive status [ER+]
CPT/HCPCS: 36415; 80053; 85025; 86300